=== PATIENT | male | born 1960 | race Two or more races ===

== ENCOUNTER 2016-09-02 20:16 | Inpatient (IN) | payer OTHER ==
[~2016-09-02] VITALS: Ht 170.2 cm; Wt 83.9 kg
[2016-09-02 20:30] VITALS: BP 117/63
[2016-09-02] MEDS ORDERED: UNOBMED (20:43)
[2016-09-02] MEDS ORDERED: CIPROFLOXACIN750 MG ORAL (20:50)
[2016-09-02 21:44] LABS: MEAN CORPUSCULAR HEMOGLOBIN 29.3 PG (27.0-31.0); MEAN CORPUSCULAR HGB CONC 33.9 G/DL (32.0-36.0); MEAN CORPUSCULAR VOLUME 86 FL (80-99); MEAN PLATELET VOLUME 5.4 FL (6.5-10.1); PLATELET COUNT 237 K/UL (150-450); RED CELL DISTRIBUTION WIDTH 11.9 % (11.6-14.8)
[2016-09-02 21:52] VITALS: BP 117/63
[2016-09-02 22:03] LABS: TROPONIN I < 0.30 ng/mL (<=0.30)
[2016-09-02 22:06] LABS: ALANINE AMINOTRANSFERASE 20 U/L (3-41); ALBUMIN/GLOBULIN RATIO 1.3 (1.0-2.7); ANION GAP 16 (5-15); ASPARTATE AMINO TRANSFERASE 26 U/L (5-40); CARBON DIOXIDE 22 mEQ/L (20-30); CHLORIDE 95 mEQ/L (98-107); CREATININE 1.3 mg/dL (0.7-1.2); GLOMERULAR FILTRATION RATE 57.1 mL/min (>60); HEMOLYSIS 3; POTASSIUM 3.7 mEQ/L (3.4-4.9); SODIUM 133 mEQ/L (135-145); TOTAL PROTEIN 7.6 g/dL (6.6-8.7)
[2016-09-02 22:12] LABS: CKMB < 1.5 ng/mL (< 6.7)
[2016-09-02 22:22] LABS: REFLEX LACTIC ACID YES OR NO YES
[2016-09-02 22:35] LABS: WHITE BLOOD COUNT 2.1 K/UL (4.8-10.8)
[2016-09-02 22:47] LABS: APPEARANCE,URINE CLEAR; KETONES,URINE NEGATIVE (NEGATIVE); LEUKOCYTE ESTERASE ,URINE 1+ (NEGATIVE); NITRITE,URINE NEGATIVE (NEGATIVE); PH,URINE 7 (4.5-8.0); PROTEIN,URINE 2+ (NEGATIVE); UROBILINOGEN,URINE NORMAL MG/DL (0.0-1.0)
[2016-09-02 22:55] LABS: BACTERIA,URINE FEW /HPF
[2016-09-02 23:12] LABS: BAND NEUTROPHILS % (MANUAL) 13 % (0-8); BASOPHILS % (MANUAL) 1 % (0-2); EOSINOPHILS % (MANUAL) 6 % (0-3); LYMPHOCYTES % (MANUAL) 30 % (20-45); NEUTROPHILS % (MANUAL) 48 % (45-75); PLATELET ESTIMATE ADEQUATE; PLATELET MORPHOLOGY NORMAL; TOTAL CELLS COUNTED 100
--- NOTE | 2016-09-02 23:27 | Emergency Room Report ---
History of Present Illness General Chief Complaint: Fever Source: Patient (PHYLLIS GAMBINO M.D.) Present Illness HPI 56-year-old male presents to ED for evaluation. Patient states yesterday he had a biopsy done of his prostate. Performed [facility]. starting today he has had tachycardia, diaphoresis and chills. Patient denies any abdominal pain. Denies any nausea or vomiting. Patient states he had blood work which states his prostate was abnormal so they performed a biopsy. Did not have the results yet. Denies chest pain or shortness of breath. No aggravating relieving factors. Denies any other associated symptoms (PHYLLIS GAMBINO M.D.) Allergies: Coded Allergies: No Known Allergies (Unverified , 09/02/16) Patient History Past Medical History: none Past Surgical History: none Pertinent Family History: none Social History: Denies: alcohol use, drug use, smoking Immunizations: UTD Reviewed Nursing Documentation: PMH: Agreed, PSxH: Agreed (PHYLLIS GAMBINO M.D.) Review of Systems All Other Systems: negative except mentioned in HPI (PHYLLIS GAMBINO M.D.) Physical Exam Vital Signs Date Time Temp Pulse Resp B/P Pulse Ox O2 Delivery O2 Flow Rate FiO2 09/02/16 20:30 137 42 117/63 91 Room Air 09/02/16 20:35 2.0 09/02/16 20:38 99.0 Sp02 EP Interpretation: reviewed, normal General Appearance: no apparent distress, alert, GCS 15, non-toxic, other - diaphoretic Head: normocephalic, atraumatic Eyes: bilateral eye PERRL, bilateral eye normal inspection ENT: hearing grossly normal, normal pharynx, no angioedema, normal voice Neck: full range of motion, supple/symm/no masses Respiratory: chest non-tender, lungs clear, normal breath sounds, speaking full sentences Cardiovascular #1: no edema, tachycardia Cardiovascular #2: 2+ carotid (R), 2+ carotid (L), 2+ radial (R), 2+ radial (L) , 2+ dorsalis pedis (R), 2+ dorsalis pedis (L) Gastrointestinal: normal bowel sounds, non tender, soft, non-distended, no guarding, no rebound Rectal: deferred Genitourinary: normal inspection, no CVA tenderness Musculoskeletal: back normal, gait/station normal, normal range of motion, non- tender Neurologic: alert, oriented x3, responsive, motor strength/tone normal, sensory intact, speech normal Psychiatric: judgement/insight normal, memory normal, mood/affect normal, no suicidal/homicidal ideation Reflexes: 3+ bicep (R), 3+ bicep (L), 3+ tricep (R), 3+ tricep (L), 3+ knee (R) , 3+ knee (L) Skin: normal color, no rash, warm/dry, well hydrated Lymphatic: no adenopathy (PHYLLIS GAMBINO M.D.) Medical Decision Making Diagnostic Impression: Primary Impression: History of prostate biopsy Additional Impressions: Leukopenia Qualified Codes: D72.819 - Decreased white blood cell count, unspecified Sepsis Qualified Codes: A41.9 - Sepsis, unspecified organism Prostatitis, acute Lymphoma Qualified Codes: C85.93 - Non-hodgkin lymphoma, unspecified, intra-abdominal lymph nodes Labs Test 09/02/16 21:15 09/02/16 22:30 White Blood Count 2.1 K/UL (4.8-10.8) Red Blood Count 4.70 M/UL (4.70-6.10) Hemoglobin 13.8 G/DL (14.2-18.0) Hematocrit 40.6 % (42.0-52.0) Mean Corpuscular Volume 86 FL (80-99) Mean Corpuscular Hemoglobin 29.3 PG (27.0-31.0) Mean Corpuscular Hemoglobin Concent 33.9 G/DL (32.0-36.0) Red Cell Distribution Width 11.9 % (11.6-14.8) Platelet Count 237 K/UL (150-450) Mean Platelet Volume 5.4 FL (6.5-10.1) Neutrophils (%) (Auto) % (45.0-75.0) Lymphocytes (%) (Auto) % (20.0-45.0) Monocytes (%) (Auto) % (1.0-10.0) Eosinophils (%) (Auto) % (0.0-3.0) Basophils (%) (Auto) % (0.0-2.0) Differential Total Cells Counted 100 Neutrophils % (Manual) 48 % (45-75) Lymphocytes % (Manual) 30 % (20-45) Monocytes % (Manual) 2 % (1-10) Eosinophils % (Manual) 6 % (0-3) Basophils % (Manual) 1 % (0-2) Band Neutrophils 13 % (0-8) Platelet Estimate Adequate Platelet Morphology Normal Red Blood Cell Morphology Normal Sodium Level 133 mEQ/L (135-145) Potassium Level 3.7 mEQ/L (3.4-4.9) Chloride Level 95 mEQ/L (98-107) Carbon Dioxide Level 22 mEQ/L (20-30) Anion Gap 16 (5-15) Blood Urea Nitrogen 10 mg/dL (7-23) Creatinine 1.3 mg/dL (0.7-1.2) Estimat Glomerular Filtration Rate 57.1 mL/min (>60) Glucose Level 138 mg/dL (74-106) Lactic Acid Level 2.80 mmol/L (0.66-2.22) Calcium Level 9.0 mg/dL (8.6-10.2) Total Bilirubin 0.9 mg/dL (0.0-1.2) Aspartate Amino Transf (AST/SGOT) 26 U/L (5-40) Alanine Aminotransferase (ALT/SGPT) 20 U/L (3-41) Alkaline Phosphatase 103 U/L (40-129) Total Creatine Kinase 108 U/L (38-174) Creatine Kinase MB < 1.5 ng/mL (< 6.7) Creatine Kinase MB Relative Index Troponin I < 0.30 ng/mL (<=0.30) Total Protein 7.6 g/dL (6.6-8.7) Albumin 4.3 g/dL (3.5-5.2) Globulin 3.3 g/dL Albumin/Globulin Ratio 1.3 (1.0-2.7) Urine Color Pale yellow Urine Appearance Clear Urine pH 7 (4.5-8.0) Urine Specific [place] 1.005 (1.005-1.035) Urine Protein 2+ (NEGATIVE) Urine Glucose (UA) Negative (NEGATIVE) Urine Ketones Negative (NEGATIVE) Urine Occult Blood 5+ (NEGATIVE) Urine Nitrite Negative (NEGATIVE) Urine Bilirubin Negative (NEGATIVE) Urine Urobilinogen Normal MG/DL (0.0-1.0) Urine Leukocyte Esterase 1+ (NEGATIVE) Urine RBC 5-10 /HPF (0 - 0) Urine WBC 2-4 /HPF (0 - 0) Urine Squamous Epithelial Cells None /LPF (NONE/OCC) Urine Bacteria Few /HPF (NONE) (PHYLLIS GAMBINO M.D.) ER Course Patient signed out to me. He presents with sepsis, fever, hypotension after prostate biopsy. CT scan signout for final disposition. CT scan show extensive adenopathy ascending for malignant process. Also showed large prostate with inflammation. I asked the patient and he said he's been losing a lot of weight in the last couple months. This confirm the suspicion for probable cancer. I discussed the case with Dr. La who will admit. Patient is feeling much better now. We'll admit to the floor. (CARLOS PADGETT M.D.) EKG Diagnostic Results Rate: tachycardiac Rhythm: NSR ST Segments: no acute changes ASA given to the pt in ED: No (PHYLLIS GAMBINO M.D.) Rhythm Strip Diag. Results EP Interpretation: yes Rhythm: NSR, no PVC's, no ectopy (PHYLLIS GAMBINO M.D.) CT/MRI/US Diagnostic Results CT/MRI/US Diagnostic Results : Imaging Test Ordered: CT abdomen and pelvis Impression read by radiologist. Extensive intra-abdominal adenopathy. Large prostate with prostatitis. (CARLOS PADGETT M.D.) Last Vital Signs Date Time Temp Pulse Resp B/P Pulse Ox O2 Delivery O2 Flow Rate FiO2 09/02/16 21:52 113 28 117/63 100 Room Air 09/02/16 20:38 99.0 09/02/16 20:35 2.0 Status: improved (PHYLLIS GAMBINO M.D.) Status: improved (CARLOS PADGETT M.D.) Disposition: ADMITTED INPATIENT Condition: Serious Referrals: NOT CHOSEN IPA/,REFERRING (PCP) PHYLLIS GAMBINO M.D. Sep 02, 2016 23:27 CARLOS PADGETT M.D. Sep 03, 2016 00:45
[2016-09-02] MEDS ORDERED: Piperacillin/Tazobactam 3.375 GM in NS 110 ML IVPB ONE (23:30)
[2016-09-03] VITALS (10 sets, daily range): BP systolic 10–131; BP diastolic 43–70
[2016-09-03] MEDS ORDERED: Zosyn 3.375gm inj ONE (01:26)
--- NOTE | 2016-09-03 08:59 | Diagnostic Imaging Report ---
Indications: Abdominopelvic pain, fever, leukopenia, status post prostate biopsy 09/01/16 Technique: Continuous helical CT imaging of the abdomen and pelvis was performed with automatic exposure control following administration of nonionic IV contrast only, on a Siemens sensation [address] scanner. Axial, coronal, sagittal images were reconstructed at 5 mm slice thickness. No oral contrast was administered per requesting physician's order, despite no contraindications listed in either submitted clinical data or tech note.. CTDI volume(s): 19 mGy Total DLP: 1025 mGy-cm Findings: Comparison: 11/02/10 Multiple enlarged lymph nodes have developed throughout the retrocrural, peripancreatic, para-aortic and bilateral iliac chain regions of the retroperitoneum, largest 5.5 cm long axis by 3.5 cm short axis diameters. Vena cava and bilateral iliac veins are compressed but appear patent. Spleen has increased in size, now 12.5 cm in diameter. It demonstrates apparent 1 cm circumscribed low-attenuation focus in its inferior pole. Scattered arterial mural calcifications are now noted without obvious flow-limiting stenosis or occlusion. Mild stranding is now noted adjacent to the prostate gland. Lack of oral contrast limits evaluation of gastrointestinal tract, nondilated throughout. Appendix unremarkable. Retained barium again noted in several right colonic diverticula. Distal rectum demonstrates apparent mild mural thickening anteriorly with mild surrounding stranding/haziness. No associated extraluminal gas or fluid collections are demonstrated. Bilateral renal collecting systems mildly distended. Urinary bladder distended. No associated stone or mass identified. Liver, gallbladder, pancreas, adrenal glands, kidneys, unopacified ureters and urinary bladder, seminal vesicles, mesentery, remainder visualized abdominopelvic anatomy unremarkable. Small irregular pleural-based linear densities and dependent portions both lung bases. Disc space narrowing with marginal osteophyte formation lower lumbar, lower thoracic spine. Multiple circumscribed sclerotic foci again noted in left ilium.. IMPRESSION: Interval development of bulky retroperitoneal lymphadenopathy suspicious for lymphoma or other lymphoproliferative disorder Increase in splenic size with development of focal lesion likely reflects same process as above Apparent mild thickening of the anterior rectal wall with perirectal and periprosthetic stranding likely within normal limits for recent transrectal prostate biopsy. Inflammatory or neoplastic process not excludable. No evidence of perforation or abscess. Urinary bladder distention may reflect outlet obstruction. Mild bilateral renal collecting system fullness may be secondary to this as well. Correlate clinically. No other evidence of acute abdominopelvic disease, with limitation as described. Subtle but potentially significant abnormalities the gastrointestinal tract may be missed. Repeat CT scan with full oral and IV contrast preparation recommended for more complete evaluation, as clinically indicated Right colonic diverticulosis Pulmonary bibasal subsegmental atelectasis Degenerative spondylosis Stable sclerotic foci left ilium most likely bone islands. Correlate with serum PSA level. This correlates with [facility] preliminary report.
--- NOTE | 2016-09-03 09:26 | Diagnostic Imaging Report ---
Indication: Chest pain Technique: Single portable AP view of the chest. Findings: Comparison: 05/29/2010 The bones and extra pulmonary soft tissues, cardiomediastinal silhouette, pulmonary vasculature and parenchyma, and pleural surfaces remain unremarkable. IMPRESSION: Negative portable AP chest, unchanged.
[2016-09-03] MEDS ORDERED: Cefepime HCl 2 GM in D5W 110 ML IVPB SCH (11:00)
--- NOTE | 2016-09-03 11:09 | History & Physical ---
History and Physical History & Physicial Pt seen and examined, full H+P to follow 56 y/o man s/p prostate biopsy yesterday, developed high fevers and tachycardia , likely with prostatitis, f/u blood cx, broad spectrum IV abx and aggressive IVF resuscitation started, Urology and ID consults called and will see today JAYME CHRISTY Sep 03, 2016 11:09
[2016-09-03] MEDS ORDERED: Piperacillin/Tazobactam 3.375 GM in D5W 110 ML IVPB SCH (14:00)
[2016-09-03 14:01] LABS: OTHERS PATHOLOGIST COMMENT
--- NOTE | 2016-09-03 14:06 | Infectious Diseases Prog Note ---
Assessment/Plan Assessment/Plan Full consult dictated: A) 1) gram neg bacteremia, sepsis, leukopenia, ? prostatitis, s/p prostate biopsy, ? uti, ? gi source 2) ct noted - bulky retroperitoneal lymphadenopathy, suspicious for lymphoma or lymphoproliferative disease 3) allergies - negative P) 1) meropenem to cover ESBL until id/sensitivities back 2) continue treatment and w/u per Dr. Zavala 3) thank you Subjective Allergies: Coded Allergies: No Known Allergies (Unverified , 09/02/16) Objective Vital Signs Last 24 Hour Vital Signs Date Time Temp Pulse Resp B/P Pulse Ox O2 Delivery O2 Flow Rate FiO2 09/03/16 11:08 98.2 98 18 107/62 96 Room Air 09/03/16 08:49 102.6 110 20 102/59 98 Room Air 09/03/16 08:49 102.6 09/03/16 08:13 103.3 122 23 122/60 97 Room Air 09/03/16 04:00 97.9 92 20 104/43 97 Room Air 09/03/16 02:30 101 20 95/55 97 Nasal Cannula 2.0 09/03/16 02:30 99.0 101 20 100/65 99 Nasal Cannula 2.0 09/03/16 02:00 99.1 103 20 96/58 99 Nasal Cannula 2.0 09/03/16 00:00 101 20 100/65 99 Nasal Cannula 2.0 09/02/16 21:52 113 28 117/63 100 Room Air 09/02/16 20:38 99.0 151 22 104/64 98 Room Air 09/02/16 20:35 28 100 2.0 09/02/16 20:30 137 42 117/63 91 Room Air Height (Feet): 5 Height (Inches): 7.00 Weight (Pounds): 185 Microbiology Date/Time Source Procedure Growth Status 09/02/16 21:15 Blood Blood Culture - Preliminary Resulted 09/02/16 21:00 Blood Blood Culture - Preliminary Resulted Laboratory Tests Test 09/02/16 21:15 09/02/16 22:30 09/03/16 02:05 White Blood Count 2.1 K/UL (4.8-10.8) *L Red Blood Count 4.70 M/UL (4.70-6.10) Hemoglobin 13.8 G/DL (14.2-18.0) L Hematocrit 40.6 % (42.0-52.0) L Mean Corpuscular Volume 86 FL (80-99) Mean Corpuscular Hemoglobin 29.3 PG (27.0-31.0) Mean Corpuscular Hemoglobin Concent 33.9 G/DL (32.0-36.0) Red Cell Distribution Width 11.9 % (11.6-14.8) Platelet Count 237 K/UL (150-450) Mean Platelet Volume 5.4 FL (6.5-10.1) L Neutrophils (%) (Auto) % (45.0-75.0) Lymphocytes (%) (Auto) % (20.0-45.0) Monocytes (%) (Auto) % (1.0-10.0) Eosinophils (%) (Auto) % (0.0-3.0) Basophils (%) (Auto) % (0.0-2.0) Differential Total Cells Counted 100 Neutrophils % (Manual) 48 % (45-75) Lymphocytes % (Manual) 30 % (20-45) Monocytes % (Manual) 2 % (1-10) Eosinophils % (Manual) 6 % (0-3) H Basophils % (Manual) 1 % (0-2) Band Neutrophils 13 % (0-8) H Platelet Estimate Adequate Platelet Morphology Normal Red Blood Cell Morphology Normal Sodium Level 133 mEQ/L (135-145) L Potassium Level 3.7 mEQ/L (3.4-4.9) Chloride Level 95 mEQ/L (98-107) L Carbon Dioxide Level 22 mEQ/L (20-30) Anion Gap 16 (5-15) H Blood Urea Nitrogen 10 mg/dL (7-23) Creatinine 1.3 mg/dL (0.7-1.2) H Estimat Glomerular Filtration Rate 57.1 mL/min (>60) Glucose Level 138 mg/dL (74-106) H Lactic Acid Level 2.80 mmol/L (0.66-2.22) H 0.20 mmol/L (0.66-2.22) L Calcium Level 9.0 mg/dL (8.6-10.2) Total Bilirubin 0.9 mg/dL (0.0-1.2) Aspartate Amino Transf (AST/SGOT) 26 U/L (5-40) Alanine Aminotransferase (ALT/SGPT) 20 U/L (3-41) Alkaline Phosphatase 103 U/L (40-129) Total Creatine Kinase 108 U/L (38-174) Creatine Kinase MB < 1.5 ng/mL (< 6.7) Creatine Kinase MB Relative Index Troponin I < 0.30 ng/mL (<=0.30) Total Protein 7.6 g/dL (6.6-8.7) Albumin 4.3 g/dL (3.5-5.2) Globulin 3.3 g/dL Albumin/Globulin Ratio 1.3 (1.0-2.7) Urine Color Pale yellow Urine Appearance Clear Urine pH 7 (4.5-8.0) Urine Specific [place] 1.005 (1.005-1.035) Urine Protein 2+ (NEGATIVE) H Urine Glucose (UA) Negative (NEGATIVE) Urine Ketones Negative (NEGATIVE) Urine Occult Blood 5+ (NEGATIVE) H Urine Nitrite Negative (NEGATIVE) Urine Bilirubin Negative (NEGATIVE) Urine Urobilinogen Normal MG/DL (0.0-1.0) Urine Leukocyte Esterase 1+ (NEGATIVE) H Urine RBC 5-10 /HPF (0 - 0) H Urine WBC 2-4 /HPF (0 - 0) Urine Squamous Epithelial Cells None /LPF (NONE/OCC) Urine Bacteria Few /HPF (NONE) Current Medications Medications (Trade) Dose Ordered Sig/Alec Route PRN Reason Start Time Stop Time Status Last Admin Dose Admin Acetaminophen 650 mg 650 mg Q4H PRN ORAL Mild Pain/Temp > 100.5 09/03/16 05:00 10/03/16 04:59 09/03/16 07:50 Ondansetron HCl (Zofran) 4 mg Q6H PRN IVP Nausea & Vomiting 09/03/16 06:00 10/03/16 05:59 Piperacillin Sod/ Tazobactam Sod/ Dextrose (Zosyn/D5W) 110 ml @ 27.5 mls/hr Q8HR IVPB 09/03/16 14:00 09/10/16 13:59 Sodium Chloride 1,000 ml @ 150 mls/hr Q6H40M IV 09/03/16 10:00 10/03/16 09:59 09/03/16 10:49 JUSTYN GRANGER Sep 03, 2016 14:06
--- NOTE | 2016-09-03 20:07 | History and Physical ---
Vickie Mohan N.P. 09/03/162006: History of Present Illness General Date patient seen: Sep 03, 2016 Time patient seen: 19:57 Reason for Hospitalization: Fever Present Illness HPI 56-year-old male with a PMH of enlarged prostate who presented to the ED last night for fevers/chills s/p prostate bx. Patient states that he had a prostate biopsy given his enlarged prostate earlier yesterday. He was discharged home and started having fevers and chills. In ED he was seen to have tachycardia, Tmax 102.6. CT a/p showed retroperitoneal LAD. Patient denies any abdominal pain. Denies any nausea or vomiting. Does not have the results for the biopsy performed at [facility] yet. Denies chest pain or shortness of breath. Patient was started on IV meropenam for possible ESBL and given aggressive fluid resuscitation. Allergies: Coded Allergies: No Known Allergies (Unverified , 09/02/16) Medication History Scheduled Ciprofloxacin Hcl (Ciprofloxacin Hcl*), 500 MG ORAL BID, (Reported) Miscellaneous Medications Unable to Obtain Medications (Unable To Obtain Meds), (Reported) Patient History History Provided By: Patient Healthcare decision maker Resuscitation status Full Code Advanced Directive on File Review of Systems Constitutional: Reports: chills, fever Physical Exam General Appearance: mild distress, other - shivering HEENT: normocephalic, atraumatic, PERRL Neck: non-tender, supple, normal inspection Respiratory/Chest: chest wall non-tender, lungs clear, normal breath sounds, no respiratory distress Cardiovascular/Chest: normal peripheral pulses, regular rhythm, tachycardia Abdomen: normal bowel sounds, non tender, soft, no mass Extremities: normal range of motion, non-tender, non-pitting, no edema Skin Exam: normal pigmentation, other - diaphoretic 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: 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 coach 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 grossly normal, no motor/sensory deficits, alert, oriented x 3, responsive, normal mood/affect Last 24 Hour Vital Signs Date Time Temp Pulse Resp B/P Pulse Ox O2 Delivery O2 Flow Rate FiO2 09/03/16 17:21 100.4 104 25 107/55 96 Room Air 09/03/16 17:21 100.4 09/03/16 15:55 102.4 113 18 131/70 97 Room Air 09/03/16 11:08 98.2 98 18 107/62 96 Room Air 09/03/16 08:49 102.6 110 20 102/59 98 Room Air 09/03/16 08:13 103.3 122 23 122/60 97 Room Air 09/03/16 04:00 97.9 92 20 104/43 97 Room Air 09/03/16 02:30 101 20 95/55 97 Nasal Cannula 2.0 09/03/16 02:30 99.0 101 20 100/65 99 Nasal Cannula 2.0 09/03/16 02:00 99.1 103 20 96/58 99 Nasal Cannula 2.0 09/03/16 00:00 101 20 100/65 99 Nasal Cannula 2.0 09/02/16 21:52 113 28 117/63 100 Room Air 09/02/16 20:38 99.0 151 22 104/64 98 Room Air 09/02/16 20:35 28 100 2.0 09/02/16 20:30 137 42 117/63 91 Room Air Intake and Output 09/02/16 09/03/16 19:00 07:00 Intake Total 300 ml Output Total 600 ml Balance -300 ml Intake Oral 300 ml Output Urine Total 600 ml # Voids 2 # Bowel Movements 1 Laboratory Tests Test 09/02/16 21:15 09/02/16 22:30 09/03/16 02:05 White Blood Count 2.1 K/UL (4.8-10.8) *L Red Blood Count 4.70 M/UL (4.70-6.10) Hemoglobin 13.8 G/DL (14.2-18.0) L Hematocrit 40.6 % (42.0-52.0) L Mean Corpuscular Volume 86 FL (80-99) Mean Corpuscular Hemoglobin 29.3 PG (27.0-31.0) Mean Corpuscular Hemoglobin Concent 33.9 G/DL (32.0-36.0) Red Cell Distribution Width 11.9 % (11.6-14.8) Platelet Count 237 K/UL (150-450) Mean Platelet Volume 5.4 FL (6.5-10.1) L Neutrophils (%) (Auto) % (45.0-75.0) Lymphocytes (%) (Auto) % (20.0-45.0) Monocytes (%) (Auto) % (1.0-10.0) Eosinophils (%) (Auto) % (0.0-3.0) Basophils (%) (Auto) % (0.0-2.0) Differential Total Cells Counted 100 Neutrophils % (Manual) 48 % (45-75) Lymphocytes % (Manual) 30 % (20-45) Monocytes % (Manual) 2 % (1-10) Eosinophils % (Manual) 6 % (0-3) H Basophils % (Manual) 1 % (0-2) Band Neutrophils 13 % (0-8) H Other Cell Type Pathologist comment Platelet Estimate Adequate Platelet Morphology Normal Red Blood Cell Morphology Normal Sodium Level 133 mEQ/L (135-145) L Potassium Level 3.7 mEQ/L (3.4-4.9) Chloride Level 95 mEQ/L (98-107) L Carbon Dioxide Level 22 mEQ/L (20-30) Anion Gap 16 (5-15) H Blood Urea Nitrogen 10 mg/dL (7-23) Creatinine 1.3 mg/dL (0.7-1.2) H Estimat Glomerular Filtration Rate 57.1 mL/min (>60) Glucose Level 138 mg/dL (74-106) H Lactic Acid Level 2.80 mmol/L (0.66-2.22) H 0.20 mmol/L (0.66-2.22) L Calcium Level 9.0 mg/dL (8.6-10.2) Total Bilirubin 0.9 mg/dL (0.0-1.2) Aspartate Amino Transf (AST/SGOT) 26 U/L (5-40) Alanine Aminotransferase (ALT/SGPT) 20 U/L (3-41) Alkaline Phosphatase 103 U/L (40-129) Total Creatine Kinase 108 U/L (38-174) Creatine Kinase MB < 1.5 ng/mL (< 6.7) Creatine Kinase MB Relative Index Troponin I < 0.30 ng/mL (<=0.30) Total Protein 7.6 g/dL (6.6-8.7) Albumin 4.3 g/dL (3.5-5.2) Globulin 3.3 g/dL Albumin/Globulin Ratio 1.3 (1.0-2.7) Urine Color Pale yellow Urine Appearance Clear Urine pH 7 (4.5-8.0) Urine Specific [place] 1.005 (1.005-1.035) Urine Protein 2+ (NEGATIVE) H Urine Glucose (UA) Negative (NEGATIVE) Urine Ketones Negative (NEGATIVE) Urine Occult Blood 5+ (NEGATIVE) H Urine Nitrite Negative (NEGATIVE) Urine Bilirubin Negative (NEGATIVE) Urine Urobilinogen Normal MG/DL (0.0-1.0) Urine Leukocyte Esterase 1+ (NEGATIVE) H Urine RBC 5-10 /HPF (0 - 0) H Urine WBC 2-4 /HPF (0 - 0) Urine Squamous Epithelial Cells None /LPF (NONE/OCC) Urine Bacteria Few /HPF (NONE) Microbiology Date/Time Source Procedure Growth Status 09/02/16 21:15 Blood Blood Culture - Preliminary Resulted 09/02/16 21:00 Blood Blood Culture - Preliminary Resulted Height (Feet): 5 Height (Inches): 7.00 Weight (Pounds): 185 Medications Current Medications Medications (Trade) Dose Ordered Sig/Alec Route PRN Reason Start Time Stop Time Status Last Admin Dose Admin Acetaminophen 650 mg 650 mg Q4H PRN ORAL Mild Pain/Temp > 100.5 09/03/16 05:00 10/03/16 04:59 09/03/16 16:22 Meropenem/Sodium Chloride (Merrem/Sodium Chloride) 100 ml @ 200 mls/hr Q8HR IVPB 09/03/16 15:30 09/08/16 15:29 09/03/16 15:05 Ondansetron HCl (Zofran) 4 mg Q6H PRN IVP Nausea & Vomiting 09/03/16 06:00 10/03/16 05:59 Sodium Chloride 1,000 ml @ 150 mls/hr Q6H40M IV 09/03/16 10:00 10/03/16 09:59 09/03/16 16:21 Assessment/Plan Status: unchanged, fever Status Narrative 56 y/o male with a PMH of enlarged prostate who had a prostate biopsy and subsequently presented with fevers/chills, currently being treated for sepsis likely 2/2 prostatitis. Assessment/Plan #Sepsis likely 2/2 prostatitis s/p prostate bx - Admit to tele/med-surg - aggressive IVF resuscitation - IV meropenam for possible ESBL - CT a/p showing retroperitoneal LAD - f/u blood cx - f/u urine cx - urology consulted - ID consulted, Dr. Milton - pain control and supportive care #MAXWELL - Cr 1.3 - IVF - ctm renal function JAYME CHRISTY 09/04/16 1424: History of Present Illness General Reason for Hospitalization: Fever Present Illness Allergies: Coded Allergies: No Known Allergies (Unverified , 09/02/16) Medication History Scheduled Ciprofloxacin Hcl (Ciprofloxacin Hcl*), 500 MG ORAL BID, (Reported) Miscellaneous Medications Unable to Obtain Medications (Unable To Obtain Meds), (Reported) Assessment/Plan Assessment/Plan I saw and examined the patient, reviewed the case in detail, reviewed radiology and EKG if applicable, in addition reviewing the laboratory data and microbiology. I agree with the history, physical examination findings, assessment and plan of care as outlined above by the Nurse Practitioner with any additions or modifications noted. Vickie Mohan N.P. Sep 03, 2016 20:07 JAYME CHRISTY Sep 04, 2016 14:24
[2016-09-03 21:27] LABS: PSA TOTAL 41.6 ng/mL (< 3.5)
[2016-09-03 21:39] LABS: URIC ACID 3.9 mg/dL (3.0-7.5)
[2016-09-04] VITALS: BP 115/62
[2016-09-04 03:45] VITALS: BP 91/61
[2016-09-04 06:30] LABS: MEAN CORPUSCULAR HEMOGLOBIN 29.4 PG (27.0-31.0); MEAN CORPUSCULAR HGB CONC 33.6 G/DL (32.0-36.0); MEAN CORPUSCULAR VOLUME 87 FL (80-99); MEAN PLATELET VOLUME 5.9 FL (6.5-10.1); PLATELET COUNT 157 K/UL (150-450); RED BLOOD COUNT 4.23 M/UL (4.70-6.10); RED CELL DISTRIBUTION WIDTH 12.3 % (11.6-14.8)
[2016-09-04 06:45] LABS: ALANINE AMINOTRANSFERASE 38 U/L (3-41); ALBUMIN/GLOBULIN RATIO 0.9 (1.0-2.7); ANION GAP 16 (5-15); ASPARTATE AMINO TRANSFERASE 62 U/L (5-40); CARBON DIOXIDE 21 mEQ/L (20-30); CHLORIDE 103 mEQ/L (98-107); CREATININE 0.9 mg/dL (0.7-1.2); GLOMERULAR FILTRATION RATE > 60 mL/min (>60); HEMOLYSIS 0; POTASSIUM 3.3 mEQ/L (3.4-4.9); SODIUM 140 mEQ/L (135-145); TOTAL PROTEIN 5.9 g/dL (6.6-8.7)
[2016-09-04 06:59] LABS: BILIRUBIN,DIRECT 0.5 mg/dL (0.1-0.3)
--- NOTE | 2016-09-04 07:38 | Urology Progress Note ---
Assessment/Plan Assessment/Plan post prostate bx sepsis BPH hx elevated PSA hx hematuria proteinuria abx as ordered f/u on cx's monitor clinically Subjective Allergies: Coded Allergies: No Known Allergies (Unverified , 09/02/16) Subjective overall feels better, voiding Objective Last 24 Hour Vital Signs Date Time Temp Pulse Resp B/P Pulse Ox O2 Delivery O2 Flow Rate FiO2 09/04/16 03:45 97.9 87 18 91/61 97 Room Air 09/04/16 01:00 98.9 09/04/16 00:00 101.8 105 18 115/62 96 Room Air 09/03/16 20:00 99.3 99 18 111/66 97 Room Air 09/03/16 17:21 100.4 104 25 107/55 96 Room Air 09/03/16 15:55 102.4 113 18 131/70 97 Room Air 09/03/16 11:08 98.2 98 18 107/62 96 Room Air 09/03/16 08:49 102.6 110 20 102/59 98 Room Air 09/03/16 08:13 103.3 122 23 122/60 97 Room Air Intake and Output 09/03/16 09/04/16 19:00 07:00 Intake Total 600 ml 1500 ml Balance 600 ml 1500 ml IV Total 600 ml 1500 ml # Voids 3 # Bowel Movements 1 1 Microbiology Date/Time Source Procedure Growth Status 09/02/16 21:15 Blood Blood Culture - Preliminary Gram Negative Bacillus 1 Resulted 09/03/16 17:30 Urine,Clean Catch Urine Culture - Preliminary NO GROWTH Resulted Current Medications Medications (Trade) Dose Ordered Sig/Alec Route PRN Reason Start Time Stop Time Status Last Admin Dose Admin Acetaminophen 650 mg 650 mg Q4H PRN ORAL Mild Pain/Temp > 100.5 09/03/16 05:00 10/03/16 04:59 09/04/16 00:09 Meropenem/Sodium Chloride (Merrem/Sodium Chloride) 100 ml @ 200 mls/hr Q8HR IVPB 09/03/16 15:30 09/08/16 15:29 09/04/16 05:53 Ondansetron HCl (Zofran) 4 mg Q6H PRN IVP Nausea & Vomiting 09/03/16 06:00 10/03/16 05:59 Sodium Chloride 1,000 ml @ 150 mls/hr Q6H40M IV 09/03/16 10:00 10/03/16 09:59 09/04/16 03:11 Laboratory Tests 09/03/16 20:15: Reticulocyte Count 0.5, Uric Acid 3.9, Lactate Dehydrogenase 452H, Carcinoembryonic Antigen 1.8, CA 15-3 Antigen [Pending], CA 19-9 Antigen 24.58, Prostate Specific Antigen 41.6H 09/04/16 05:20: White Blood Count 4.0#L, Red Blood Count 4.23L, Hemoglobin 12.4L, Hematocrit 36.9L, Mean Corpuscular Volume 87, Mean Corpuscular Hemoglobin 29.4, Mean Corpuscular Hemoglobin Concent 33.6, Red Cell Distribution Width 12.3, Platelet Count 157, Mean Platelet Volume 5.9L, Neutrophils (%) (Auto) , Lymphocytes (%) ( Auto) , Monocytes (%) (Auto) , Eosinophils (%) (Auto) , Basophils (%) (Auto) , Sodium Level 140, Potassium Level 3.3L, Chloride Level 103, Carbon Dioxide Level 21, Anion Gap 16H, Blood Urea Nitrogen 9, Creatinine 0.9, Estimat Glomerular Filtration Rate > 60, Glucose Level 93, Calcium Level 8.0L, Total Bilirubin 1.1, Direct Bilirubin 0.5H, Aspartate Amino Transf (AST/SGOT) 62H, Alanine Aminotransferase (ALT/SGPT) 38, Alkaline Phosphatase 120, Total Protein 5.9L, Albumin 2.9L, Globulin 3.0, Albumin/Globulin Ratio 0.9L Height (Feet): 5 Height (Inches): 7.00 Weight (Pounds): 185 Objective exam stable FLORIN PRAJAPATI Sep 04, 2016 07:38
[2016-09-04 08:00] VITALS: BP 107/69
--- NOTE | 2016-09-04 08:30 | Consultation ---
DATE OF CONSULTATION: 09/03/2016 CONSULTING PHYSICIAN: Chele Castañeda M.D. REFERRING PHYSICIAN: Lyn Zavala M.D. REASON FOR CONSULTATION: For evaluation of post biopsy sepsis. HISTORY OF PRESENT ILLNESS: This is a 56-year-old male. He has a history of a PSA. He had a prostate biopsy two days ago by . He developed fevers and chills post biopsy and came to the emergency room. He was treated with antibiotics prior to the biopsy. PAST MEDICAL HISTORY: As above. MEDICATIONS: Current medications in the hospital were reviewed. He is on antibiotics as ordered. Apparently, he did take Cipro prior to the biopsy. ALLERGIES: No known drug allergies. SOCIAL HISTORY: He is a nonsmoker. FAMILY HISTORY: Noncontributory. REVIEW OF SYSTEMS: As above, PHYSICAL EXAMINATION: GENERAL: Well-developed and well-nourished male, in no acute distress. VITAL SIGNS: His T-max was 103.3 and blood pressure is 102/59. ABDOMEN: Soft. No CVA tenderness. EXTREMITIES: No clubbing or cyanosis. LABORATORY DATA: His admit UA showed 5 to 10 RBCs and 2+ protein. White count 2.1, hemoglobin 13.8. BUN is 10 and creatinine 1.3. He had CT scan of the abdomen and pelvis, there was evidence of bulky retroperitoneal adenopathy, some renal collecting system fullness. IMPRESSION: 1. Post prostate biopsy, sepsis. 2. Elevated prostate-specific antigen history. 3. Benign prostatic hypertrophy history. 4. Hematuria. 5. Proteinuria. PLAN AND DISCUSSION: The patient is to be treated with broad-spectrum antibiotics as ordered per ID. I would also recommend hydration and clinical monitoring. Thank you, Dr. Zavala, for asking me to participate in this consultation. Chele Castañeda M.D. DR: MICHAELLE JOB#: [id number] CC:
[2016-09-04 12:00] VITALS: BP 125/73
--- NOTE | 2016-09-04 13:30 | Diagnostic Imaging Report ---
Indication: Abdominal distention, abnormal renal function tests, abnormal recent CT scan Technique: Marie-scale and duplex images of the upper abdomen were obtained Comparison: Reference made to CT scan of 09/02/2012 Findings: Gallbladder demonstrates no evidence of stones. However, gallbladder wall is thickened, measures 5 mm thick. It is slightly hypervascular as well. Sonographic Eagle's sign is negative. Common bile duct measures 6 mm in diameter. No intrahepatic biliary ductal dilatation. Liver demonstrates normal echogenicity, no focal abnormality. Liver is slightly enlarged. Portal vein and hepatic veins are patent. Pancreas demonstrates slightly heterogeneous echogenicity. Enlarged peripancreatic nodes are noted, measuring up to 3.7 cm long axis dimension. The spleen is enlarged, measuring 14 cm long axis dimension. There an 18 mm hypoechoic lesion in the splenic hilum. Left kidney measures 12.3 cm in length. Right kidney measures 13.1 cm length. Both kidneys demonstrate normal echogenicity. Both kidneys are borderline hydronephrotic, more so on the right on the left. No focal abnormality . The urinary bladder is mildly distended.. Non-aneurysmal abdominal aorta . Numerous enlarged para-aortic lymph nodes demonstrated Impression: No evidence of gallstones. However, there is gallbladder wall thickening, not evident on previous days CT scan. Significance of this is uncertain, may indicate noninflammatory edema, but acute acalculous cholecystitis cannot be completely ruled out. Consider nuclear medicine hepatobiliary scan if there is high clinical suspicion. Negative for dilated ducts Extensive peripancreatic and para-aortic lymphadenopathy, also described on recent abdomen pelvis CT Splenomegaly, also previously described. 18 mm hypoechoic splenic lesion, also described on recent CT Borderline bilateral renal hydronephrosis, right greater than left Borderline hepatomegaly
[2016-09-04 15:16] LABS: INR 1.1 (0.9-1.1)
--- NOTE | 2016-09-04 15:57 | General Progress Note ---
Assessment/Plan Problem List: (1) Sepsis Assessment & Plan: Cont IV abx per ID Has gram neg mal bacteremia IV fluids Supp care ICD Codes: A41.9 - Sepsis, unspecified organism SNOMED: 29619240, [id number], [id number] Qualifiers: Qualified Codes: A41.9 - Sepsis, unspecified organism (2) Prostatitis, acute Assessment & Plan: Apprec urology eval No surgical intervention needed PSA noted Cont IV abx per ID f/u blood cx ICD Codes: N41.0 - Acute prostatitis SNOMED: 34046531, [id number] (3) Lymphadenopathy, abdominal Assessment & Plan: Seen on CT scan, concerning for possible lymphoma or other proliferative disorder Apprec [facility] eval, will pursue workup while remains inpatient for treatment of sepsis ICD Codes: R59.0 - Localized enlarged lymph nodes SNOMED: 719107022 Subjective Date patient seen: Sep 04, 2016 Time patient seen: 15:54 ROS Limited/Unobtainable: No Allergies: Coded Allergies: No Known Allergies (Unverified , 09/02/16) Subjective Seen by [facility], no further tachycardia, no fevers/chills, blood cx growing gram neg rods, feels better overall Objective Last 24 Hour Vital Signs Date Time Temp Pulse Resp B/P Pulse Ox O2 Delivery O2 Flow Rate FiO2 09/04/16 12:00 97.3 78 20 125/73 100 Room Air 09/04/16 08:00 97.7 89 20 107/69 97 Room Air 09/04/16 03:45 97.9 87 18 91/61 97 Room Air 09/04/16 01:00 98.9 09/04/16 00:00 101.8 105 18 115/62 96 Room Air 09/03/16 20:00 99.3 99 18 111/66 97 Room Air 09/03/16 17:21 100.4 104 25 107/55 96 Room Air 09/03/16 15:55 102.4 113 18 131/70 97 Room Air Intake and Output 09/03/16 09/04/16 19:00 07:00 Intake Total 600 ml 1500 ml Balance 600 ml 1500 ml IV Total 600 ml 1500 ml # Voids 3 # Bowel Movements 1 1 Laboratory Tests 09/03/16 20:15: Reticulocyte Count 0.5, Uric Acid 3.9, Lactate Dehydrogenase 452H, Carcinoembryonic Antigen 1.8, CA 15-3 Antigen [Pending], CA 19-9 Antigen 24.58, Prostate Specific Antigen 41.6H 09/04/16 05:20: White Blood Count 4.0#L, Red Blood Count 4.23L, Hemoglobin 12.4L, Hematocrit 36.9L, Mean Corpuscular Volume 87, Mean Corpuscular Hemoglobin 29.4, Mean Corpuscular Hemoglobin Concent 33.6, Red Cell Distribution Width 12.3, Platelet Count 157, Mean Platelet Volume 5.9L, Neutrophils (%) (Auto) , Lymphocytes (%) ( Auto) , Monocytes (%) (Auto) , Eosinophils (%) (Auto) , Basophils (%) (Auto) , Sodium Level 140, Potassium Level 3.3L, Chloride Level 103, Carbon Dioxide Level 21, Anion Gap 16H, Blood Urea Nitrogen 9, Creatinine 0.9, Estimat Glomerular Filtration Rate > 60, Glucose Level 93, Calcium Level 8.0L, Total Bilirubin 1.1, Direct Bilirubin 0.5H, Aspartate Amino Transf (AST/SGOT) 62H, Alanine Aminotransferase (ALT/SGPT) 38, Alkaline Phosphatase 120, Total Protein 5.9L, Albumin 2.9L, Globulin 3.0, Albumin/Globulin Ratio 0.9L 09/04/16 14:35: Prothrombin Time 12.0H, Prothromb Time International Ratio 1.1, Activated Partial Thromboplast Time 36H Height (Feet): 5 Height (Inches): 7.00 Weight (Pounds): 185 Objective General: alert, cooperative, no distress, appears stated age Head: normocephalic, without obvious abnormality, atraumatic Eyes: conjunctivae/corneas clear. PERRL, EOM's intact Throat: lips, mucosa, and tongue normal. MMM Neck: supple, symmetrical, trachea midline, and no JVD Lungs: clear to auscultation bilaterally Heart: regular rate and rhythm, S1, S2 normal, no murmur, click, rub or gallop Abdomen: soft, non-tender, non-distended, bowel sounds normal; no masses or organomegaly Extremities: extremities normal, atraumatic, no cyanosis or edema Pulses: 2+ and symmetric Skin: skin color, texture, turgor normal; no rashes or lesions Neurologic: grossly normal, no focal deficits JAYME CHRISTY Sep 04, 2016 15:57
[2016-09-04 16:00] VITALS: BP 136/94
--- NOTE | 2016-09-04 16:18 | Infectious Diseases Prog Note ---
Assessment/Plan Assessment/Plan A) 1) gram neg bacteremia, sepsis, leukopenia, ? prostatitis, s/p prostate biopsy, ? uti, ? gi source 2) ct noted - bulky retroperitoneal lymphadenopathy, suspicious for lymphoma or lymphoproliferative disease 3) allergies - negative P) 1) meropenem for now 2) continue treatment and w/u per Dr. Zavala 3) check final cultures Subjective Constitutional: Reports: fever HEENT: Denies: congestion Respiratory: Denies: shortness of breath Cardiovascular: Denies: chest pain Gastrointestinal/Abdominal: Denies: diarrhea, nausea, vomiting Allergies: Coded Allergies: No Known Allergies (Unverified , 09/02/16) Objective Vital Signs Last 24 Hour Vital Signs Date Time Temp Pulse Resp B/P Pulse Ox O2 Delivery O2 Flow Rate FiO2 09/04/16 12:00 97.3 78 20 125/73 100 Room Air 09/04/16 08:00 97.7 89 20 107/69 97 Room Air 09/04/16 03:45 97.9 87 18 91/61 97 Room Air 09/04/16 01:00 98.9 09/04/16 00:00 101.8 105 18 115/62 96 Room Air 09/03/16 20:00 99.3 99 18 111/66 97 Room Air 09/03/16 17:21 100.4 104 25 107/55 96 Room Air Height (Feet): 5 Height (Inches): 7.00 Weight (Pounds): 185 General Appearance: no acute distress HEENT: normocephalic, atraumatic, anicteric, mucous membranes moist, PERRL, EOMI, pharynx normal, supple, no JVD Respiratory/Chest: lungs clear, normal breath sounds, no respiratory distress, no accessory muscle use Cardiovascular: normal rate, regular rhythm, no gallop/murmur, no JVD Abdomen: normal bowel sounds, soft, non tender, no organomegaly, non distended Genitourinary: other - no suh Extremities: no cyanosis Skin: no rash Neurologic/Psychiatric: radon inspector II-XII grossly normal, alert, oriented x 3, responsive Lymphatic: no neck adenopathy Musculoskeletal: no effusion Microbiology Date/Time Source Procedure Growth Status 09/02/16 21:15 Blood Blood Culture - Preliminary Gram Negative Bacillus 1 Resulted 09/02/16 21:00 Blood Blood Culture - Preliminary Gram Negative Bacillus 1 Resulted 09/03/16 17:30 Urine,Clean Catch Urine Culture - Preliminary NO GROWTH Resulted Laboratory Tests Test 09/03/16 20:15 09/04/16 05:20 09/04/16 14:35 Reticulocyte Count 0.5 % (0.0-2.0) Uric Acid 3.9 mg/dL (3.0-7.5) Lactate Dehydrogenase 452 U/L (135-230) H Carcinoembryonic Antigen 1.8 ng/mL CA 15-3 Antigen Pending CA 19-9 Antigen 24.58 U/mL (< 37) Prostate Specific Antigen 41.6 ng/mL (< 3.5) H White Blood Count 4.0 K/UL (4.8-10.8) #L Red Blood Count 4.23 M/UL (4.70-6.10) L Hemoglobin 12.4 G/DL (14.2-18.0) L Hematocrit 36.9 % (42.0-52.0) L Mean Corpuscular Volume 87 FL (80-99) Mean Corpuscular Hemoglobin 29.4 PG (27.0-31.0) Mean Corpuscular Hemoglobin Concent 33.6 G/DL (32.0-36.0) Red Cell Distribution Width 12.3 % (11.6-14.8) Platelet Count 157 K/UL (150-450) Mean Platelet Volume 5.9 FL (6.5-10.1) L Neutrophils (%) (Auto) % (45.0-75.0) Lymphocytes (%) (Auto) % (20.0-45.0) Monocytes (%) (Auto) % (1.0-10.0) Eosinophils (%) (Auto) % (0.0-3.0) Basophils (%) (Auto) % (0.0-2.0) Sodium Level 140 mEQ/L (135-145) Potassium Level 3.3 mEQ/L (3.4-4.9) L Chloride Level 103 mEQ/L (98-107) Carbon Dioxide Level 21 mEQ/L (20-30) Anion Gap 16 (5-15) H Blood Urea Nitrogen 9 mg/dL (7-23) Creatinine 0.9 mg/dL (0.7-1.2) Estimat Glomerular Filtration Rate > 60 mL/min (>60) Glucose Level 93 mg/dL (74-106) Calcium Level 8.0 mg/dL (8.6-10.2) L Total Bilirubin 1.1 mg/dL (0.0-1.2) Direct Bilirubin 0.5 mg/dL (0.1-0.3) H Aspartate Amino Transf (AST/SGOT) 62 U/L (5-40) H Alanine Aminotransferase (ALT/SGPT) 38 U/L (3-41) Alkaline Phosphatase 120 U/L (40-129) Total Protein 5.9 g/dL (6.6-8.7) L Albumin 2.9 g/dL (3.5-5.2) L Globulin 3.0 g/dL Albumin/Globulin Ratio 0.9 (1.0-2.7) L Prothrombin Time 12.0 SEC (9.30-11.50) H Prothromb Time International Ratio 1.1 (0.9-1.1) Activated Partial Thromboplast Time 36 SEC (23-33) H Current Medications Medications (Trade) Dose Ordered Sig/Alec Route PRN Reason Start Time Stop Time Status Last Admin Dose Admin Acetaminophen 650 mg 650 mg Q4H PRN ORAL Mild Pain/Temp > 100.5 09/03/16 05:00 10/03/16 04:59 09/04/16 00:09 Meropenem/Sodium Chloride (Merrem/Sodium Chloride) 100 ml @ 200 mls/hr Q8HR IVPB 09/03/16 15:30 09/08/16 15:29 09/04/16 05:53 Ondansetron HCl (Zofran) 4 mg Q6H PRN IVP Nausea & Vomiting 09/03/16 06:00 10/03/16 05:59 Sodium Chloride 1,000 ml @ 150 mls/hr Q6H40M IV 09/03/16 10:00 10/03/16 09:59 09/04/16 10:45 JUSTYN GRANGER Sep 04, 2016 16:18
[2016-09-04 20:00] VITALS: BP 119/70
[2016-09-05] VITALS: BP 118/80
--- NOTE | 2016-09-05 00:45 | Consultation ---
DATE OF CONSULTATION: 09/04/2016 INFECTIOUS DISEASES CONSULTATION CONSULTING PHYSICIAN: Rochelle Amador M.D. ATTENDING PHYSICIAN: Lyn Zavala M.D. REASON FOR CONSULTATION: Sepsis, gram-negative bacteremia, and fevers. The patient's chief complaint coming into the hospital is sepsis and fevers. HISTORY OF PRESENT ILLNESS: This is a 56-year-old male, who had a recent prostate biopsy. The patient presents with fever and chills. The workup shows that he has gram-negative bacteremia. Infectious Diseases consultation was requested. I saw the patient yesterday and put him on meropenem to cover ESBL organisms pending results. The patient also was septic with SIRS criteria and fevers. MAR was noted. Orders were noted. Notes and records were reviewed. REVIEW OF SYSTEMS: Constitutional: The patient has generalized weakness. He came in with fever and chills. Head And neck: No head pain or neck pain. No thrush or dysphagia. Cardiac: No chest pain or palpitation Gastrointestinal: No nausea, vomiting, or diarrhea. Genitourinary: No dysuria at this time, CVA tenderness. Pulmonary: No congestion or shortness of breath. Skin: No rash. Neurological: No seizures. PAST MEDICAL HISTORY: The patient's past medical history includes a history of the following: The patient had prostate biopsy from enlarged prostate and it was actually done, it looks like a . The patient came in also with acute kidney injury with elevated creatinine. The patient was also leukopenic and had mild anemia. The patient also had a CT scan, retroperitoneal adenopathy, and looks like also prostatitis. I am not clear on this. No history of diabetes or hypertension. He also has hematuria and proteinuria. ALLERGIES: No known drug allergies. FAMILY HISTORY: Noncontributory. SOCIAL HISTORY: Negative for smoking, alcohol, or drug abuse. MEDICATIONS: Upon reviewing the MAR, the patient is on the following medications. He is on meropenem, Zofran, Tylenol. He was on Cipro, I think prior. PHYSICAL EXAMINATION: VITAL SIGNS: Temperature is 101.8 degrees, pulse rate 100, respiratory rate 20, blood pressure 136/94, and saturation 99%. GENERAL: Alert, responsive, and in no acute distress. Today, he feels better than yesterday. HEAD AND NECK: Oral exam, no thrush. Eye exam, no icterus. Normocephalic. HEART: Regular. No gallop or murmur. ABDOMEN: Soft. Positive bowel sounds. Nontender. No organomegaly. No rebound. LUNGS: Clear bilaterally. No rhonchi or rales. SKIN: No rash or dermatitis. MUSCULOSKELETAL: No effusion. EXTREMITIES: Legs are without cellulitis. PERIPHERAL VASCULAR: No cyanosis or gangrene. NEUROLOGIC: Intact. LINES: Line sites without phlebitis. GENITOURINARY: Without Wolfe. RECTAL: Deferred. LABORATORY DATA: The patient's white count is 4.0, hemoglobin 12.4, and platelet count is 157,000. White count was 2.1 yesterday. Creatinine is 0.9. It was earlier as high as 1.3. Urinalysis had 1+ leukocyte esterase, but only 2-[address] scan of the abdomen and pelvis showed retroperitoneal lymphadenopathy, suspicious for lymphoma or other lymphoproliferative disease. Chest x-ray was negative for pneumonia noted. Urine culture is negative. Blood cultures show gram-negative bacilli. ASSESSMENT AND PLAN: 1. This is a 56-year-old male with gram-negative bacteremia. The patient likely has the gram-negative bacteremia, secondary to prostate biopsy, which is a potential complication of prostate biopsy. There had been reported ESBL organisms with prostate biopsies, and thus, we will give meropenem to cover the gram-negative bacteremia until we identify the gram-negative organism. Continue meropenem. Check blood culture results. Urinalysis fairly unremarkable. It is unclear if he has underlying urinary tract infection. He certainly could have underlying prostatitis, but I will defer to Urology for further evaluation. At this time, we will continue meropenem. Check followup labs, chest x-ray, and blood cultures. 2. Retroperitoneal adenopathy. We will work up per Dr. Zavala, but I think, Hematology/Oncology has been consulted. 3. Leukopenia. 4. Anemia. 5. Benign prostatic hypertrophy or enlarged prostate. 6. Proteinuria and hematuria. 7. No known allergies. 8. Social history is negative. 9. Case discussed per Dr. Zavala. 10. MAR was noted. 11. Notes were reviewed. 12. Case was discussed with RN. Rochelle Amador M.D. DR: Aren JOB#: [id number] CC:
--- NOTE | 2016-09-05 03:15 | Consultation ---
DATE OF CONSULTATION: INFECTIOUS DISEASE CONSULTATION Addendum ASSESSMENT AND PLAN: The patient had gram-negative sepsis. The sepsis is secondary to gram-negative bacteremia, likely secondary to prostate biopsy and possible underlying prostatitis. Rochelle Amador M.D. DR: NATALIE JOB#: [id number] CC:
[2016-09-05 04:00] VITALS: BP 120/70
[2016-09-05 07:08] LABS: BASOPHILS % (AUTO) 0.8 % (0.0-2.0); EOSINOPHILS % (AUTO) 7.6 % (0.0-3.0); LYMPHOCYTES % (AUTO) 13.3 % (20.0-45.0); MEAN CORPUSCULAR HEMOGLOBIN 29.1 PG (27.0-31.0); MEAN CORPUSCULAR HGB CONC 33.6 G/DL (32.0-36.0); MEAN CORPUSCULAR VOLUME 87 FL (80-99); MEAN PLATELET VOLUME 6.3 FL (6.5-10.1); NEUTROPHILS % (AUTO) 71.3 % (45.0-75.0); PLATELET COUNT 148 K/UL (150-450); RED CELL DISTRIBUTION WIDTH 12.3 % (11.6-14.8); WHITE BLOOD COUNT 3.7 K/UL (4.8-10.8)
--- NOTE | 2016-09-05 07:15 | Consultation ---
DATE OF CONSULTATION: 09/04/2016 HEMATOLOGY/ONCOLOGY CONSULTATION CONSULTING PHYSICIAN: Isaac Dietz M.D. REQUESTING PHYSICIAN: Lyn Zavala M.D. REASON FOR CONSULTATION: Evaluation of lymphadenopathy. IDENTIFICATION DATA: Dear Dr. Zavala, The patient is a pleasant 56-year-old male with a past medical history, which is significant for prostate enlargement, presented to the ER recently. No fever or chills. He has had prostate biopsy. He had enlarged prostate earlier. He was discharged home. in the ER, he was noted to have tachycardia. Also, he was noted to have fever with temperature of 102.6 degrees Fahrenheit . CAT scan of the abdomen and pelvis showed retroperitoneal lymphadenopathy. Denies any abdominal pain. Denies any nausea or vomiting. He could not have [place], however, he was admitted and noted on CAT scan to have retroperitoneal lymphadenopathy. Hematology and oncology was consulted, and was placed on antibiotics for possible ESBL. Past Medical History: 01:09 prostate. PAST SURGICAL HISTORY: Status post prostate biopsy. MEDICATIONS: Ciprofloxacin. CODE STATUS: Full Code. REVIEW OF SYSTEMS: Constitutional: No fever or chills noted. Pulmonary: No cough, sputum, or shortness of breath. Cardiovascular: No chest pain, tightness, or palpitations. Gastrointestinal: No nausea, vomiting, or diarrhea. Genitourinary: No dysuria, frequency, or urgency. Musculoskeletal: No joint swelling, muscle pain, or trauma. Neurologic: No syncope. PHYSICAL EXAMINATION: GENERAL: The patient is in no acute distress. VITAL SIGNS: Blood pressure 107/55, pulse of 104, respiratory rate 12, and temperature is 100.4 degrees Fahrenheit. PULMONARY: Decreased breath sounds. CARDIOVASCULAR: Regular rate. No S3 or S4. ABDOMEN: Soft, nontender, and nondistended. EXTREMITIES: There is 1+ pitting edema. LABORATORY DATA: WBC 2.1, hemoglobin 13.1, hematocrit 41, and platelet count 237,000. IMAGING: Some retroperitoneal diffuse lymphadenopathy noted on CAT scan amongst other findings as well has been noted by the primary physician Dr. Lyn Zavala and nurse practitioner . ASSESSMENT AND PLAN: 1. Retroperitoneal diffuse lymphadenopathy will be sent for biopsy. I have discussed extensively with the nurse even though the patient did in fact have a prostate biopsy, he still requires biopsy and the lymphadenopathy noted in the . 2. Aortic lymphadenopathy. In addition, send for tumor markers. 3. Splenomegaly likely related to underlying malignant process and gross infection. Continue to closely monitor. 4. Leukopenia. The patient infection. Okay to administer Neupogen x1 dose. 5. Coagulopathy secondary to malignancy. 6. Hyperkalemia. 7. Prostate specific antigen is 42 concerning for prostate cancer. 8. Elevated CA-99. 9. Lactic acidosis and septic shock, which improved. 10. Gram-negative bacteremia. 11. biopsy report. 12. Discussed with staff. Isaac Dietz M.D. DR: JAVON JOB#: [id number] CC:
[2016-09-05 07:34] LABS: ANION GAP 14 (5-15); CALCIUM 8.4 mg/dL (8.6-10.2); CARBON DIOXIDE 23 mEQ/L (20-30); CHLORIDE 103 mEQ/L (98-107); CREATININE 0.6 mg/dL (0.7-1.2); GLOMERULAR FILTRATION RATE > 60 mL/min (>60); HEMOLYSIS 2; POTASSIUM 4.1 mEQ/L (3.4-4.9); SODIUM 140 mEQ/L (135-145)
[2016-09-05 08:16] VITALS: BP 129/83
--- NOTE | 2016-09-05 09:22 | Urology Progress Note ---
Assessment/Plan Assessment/Plan post prostate bx sepsis BPH hx elevated PSA hx hematuria proteinuria abx as ordered, per ID monitor clinically Subjective Allergies: Coded Allergies: No Known Allergies (Unverified , 09/02/16) Subjective no new changes Objective Last 24 Hour Vital Signs Date Time Temp Pulse Resp B/P Pulse Ox O2 Delivery O2 Flow Rate FiO2 09/05/16 08:16 98.2 84 18 129/83 99 Room Air 09/05/16 04:00 98.4 82 18 120/70 96 Room Air 09/05/16 00:00 98.4 79 18 118/80 99 Room Air 09/04/16 20:27 98.1 09/04/16 20:00 99.9 108 20 119/70 Room Air 09/04/16 16:00 101.8 100 20 136/94 99 Room Air 09/04/16 12:00 97.3 78 20 125/73 100 Room Air Intake and Output 09/04/16 09/05/16 19:00 07:00 Intake Total 1650 ml 1700 ml Balance 1650 ml 1700 ml Intake Oral 200 ml IV Total 1450 ml 1700 ml # Voids 4 5 Microbiology Date/Time Source Procedure Growth Status 09/02/16 21:15 Blood Blood Culture - Final Escherichia Coli - Esbl Complete 09/03/16 17:30 Urine,Clean Catch Urine Culture - Final NO GROWTH AFTER 48 HOURS Complete Current Medications Medications (Trade) Dose Ordered Sig/Alec Route PRN Reason Start Time Stop Time Status Last Admin Dose Admin Acetaminophen 650 mg 650 mg Q4H PRN ORAL Mild Pain/Temp > 100.5 09/03/16 05:00 10/03/16 04:59 09/04/16 19:28 Meropenem/Sodium Chloride (Merrem/Sodium Chloride) 100 ml @ 200 mls/hr Q8HR IVPB 09/03/16 15:30 09/08/16 15:29 09/05/16 05:12 Ondansetron HCl (Zofran) 4 mg Q6H PRN IVP Nausea & Vomiting 09/03/16 06:00 10/03/16 05:59 Sodium Chloride 1,000 ml @ 150 mls/hr Q6H40M IV 09/03/16 10:00 10/03/16 09:59 09/05/16 02:41 Laboratory Tests 09/04/16 14:35: Prothrombin Time 12.0H, Prothromb Time International Ratio 1.1, Activated Partial Thromboplast Time 36H 09/05/16 04:35: White Blood Count 3.7L, Red Blood Count 3.90L, Hemoglobin 11.3L, Hematocrit 33.8L, Mean Corpuscular Volume 87, Mean Corpuscular Hemoglobin 29.1, Mean Corpuscular Hemoglobin Concent 33.6, Red Cell Distribution Width 12.3, Platelet Count 148L, Mean Platelet Volume 6.3L, Neutrophils (%) (Auto) 71.3, Lymphocytes (%) (Auto) 13.3L, Monocytes (%) (Auto) 7.0, Eosinophils (%) (Auto) 7.6H, Basophils (%) (Auto) 0.8, Sodium Level 140, Potassium Level 4.1, Chloride Level 103, Carbon Dioxide Level 23, Anion Gap 14, Blood Urea Nitrogen 8, Creatinine 0.6L, Estimat Glomerular Filtration Rate > 60, Glucose Level 88, Calcium Level 8.4L Height (Feet): 5 Height (Inches): 7.00 Weight (Pounds): 185 Objective exam stable FLORIN PRAJAPATI Sep 05, 2016 09:22
[2016-09-05 11:34] VITALS: BP 119/79
[2016-09-05] MEDS ORDERED: Tubing IV Secondary IV ONE (15:36)
[2016-09-05 15:43] VITALS: BP 127/81
--- NOTE | 2016-09-05 15:46 | General Progress Note ---
Assessment/Plan Problem List: (1) Sepsis Assessment & Plan: Cont IV abx per ID ESBL E coli bacteremia IV fluids Supp care ICD Codes: A41.9 - Sepsis, unspecified organism SNOMED: 52756670, 52963677, 25490803 Qualifiers: Qualified Codes: A41.9 - Sepsis, unspecified organism (2) Prostatitis, acute Assessment & Plan: Apprec urology eval No surgical intervention needed PSA noted Cont IV abx per ID f/u blood cx ICD Codes: N41.0 - Acute prostatitis SNOMED: 99050994, 5903655 (3) Lymphadenopathy, abdominal Assessment & Plan: Seen on CT scan, concerning for possible lymphoma or other proliferative disorder Apprec [facility] eval, will pursue workup while remains inpatient for treatment of sepsis, IR for CT guided biopsy of lymphadenopathy ICD Codes: R59.0 - Localized enlarged lymph nodes SNOMED: 427100421 Subjective Date patient seen: Sep 05, 2016 Time patient seen: 15:41 ROS Limited/Unobtainable: No Allergies: Coded Allergies: No Known Allergies (Unverified , 09/02/16) Subjective Seen by [facility], no further tachycardia, no fevers/chills, blood cx growing ESBL e coli, on meropenem, feels better overall Objective Last 24 Hour Vital Signs Date Time Temp Pulse Resp B/P Pulse Ox O2 Delivery O2 Flow Rate FiO2 09/05/16 11:34 97.7 79 19 119/79 98 Room Air 09/05/16 08:16 98.2 84 18 129/83 99 Room Air 09/05/16 04:00 98.4 82 18 120/70 96 Room Air 09/05/16 00:00 98.4 79 18 118/80 99 Room Air 09/04/16 20:27 98.1 09/04/16 20:00 99.9 108 20 119/70 Room Air 09/04/16 16:00 101.8 100 20 136/94 99 Room Air Intake and Output 09/04/16 09/05/16 19:00 07:00 Intake Total 1650 ml 1700 ml Balance 1650 ml 1700 ml Intake Oral 200 ml IV Total 1450 ml 1700 ml # Voids 4 5 Laboratory Tests 09/05/16 04:35: White Blood Count 3.7L, Red Blood Count 3.90L, Hemoglobin 11.3L, Hematocrit 33.8L, Mean Corpuscular Volume 87, Mean Corpuscular Hemoglobin 29.1, Mean Corpuscular Hemoglobin Concent 33.6, Red Cell Distribution Width 12.3, Platelet Count 148L, Mean Platelet Volume 6.3L, Neutrophils (%) (Auto) 71.3, Lymphocytes (%) (Auto) 13.3L, Monocytes (%) (Auto) 7.0, Eosinophils (%) (Auto) 7.6H, Basophils (%) (Auto) 0.8, Sodium Level 140, Potassium Level 4.1, Chloride Level 103, Carbon Dioxide Level 23, Anion Gap 14, Blood Urea Nitrogen 8, Creatinine 0.6L, Estimat Glomerular Filtration Rate > 60, Glucose Level 88, Calcium Level 8.4L Height (Feet): 5 Height (Inches): 7.00 Weight (Pounds): 185 Objective General: alert, cooperative, no distress, appears stated age Head: normocephalic, without obvious abnormality, atraumatic Eyes: conjunctivae/corneas clear. PERRL, EOM's intact Throat: lips, mucosa, and tongue normal. MMM Neck: supple, symmetrical, trachea midline, and no JVD Lungs: clear to auscultation bilaterally Heart: regular rate and rhythm, S1, S2 normal, no murmur, click, rub or gallop Abdomen: soft, non-tender, non-distended, bowel sounds normal; no masses or organomegaly Extremities: extremities normal, atraumatic, no cyanosis or edema Pulses: 2+ and symmetric Skin: skin color, texture, turgor normal; no rashes or lesions Neurologic: grossly normal, no focal deficits JAYME CHRISTY Sep 05, 2016 15:46
[2016-09-05 20:00] VITALS: BP 132/89
[2016-09-06] VITALS: BP 139/89
[2016-09-06 04:00] VITALS: BP 123/79
[2016-09-06 07:48] VITALS: BP 130/82
--- NOTE | 2016-09-06 09:42 | Urology Progress Note ---
Assessment/Plan Assessment/Plan post prostate bx sepsis BPH hx elevated PSA hx hematuria proteinuria abx as ordered, per ID monitor clinically, improving Subjective Allergies: Coded Allergies: No Known Allergies (Unverified , 09/02/16) Subjective no new changes, some hematuria Objective Last 24 Hour Vital Signs Date Time Temp Pulse Resp B/P Pulse Ox O2 Delivery O2 Flow Rate FiO2 09/06/16 07:48 98.6 84 19 130/82 96 Room Air 09/06/16 04:00 97.9 79 18 123/79 97 Room Air 09/06/16 00:00 98.4 82 18 139/89 98 Room Air 09/05/16 20:00 98.2 82 18 132/89 98 Room Air 09/05/16 15:43 97.9 82 19 127/81 97 Room Air 09/05/16 11:34 97.7 79 19 119/79 98 Room Air Intake and Output 09/05/16 09/06/16 19:00 07:00 Intake Total 1920 ml 2000 ml Balance 1920 ml 2000 ml Intake Oral 620 ml IV Total 1300 ml 2000 ml # Voids 4 4 # Bowel Movements 1 Microbiology Date/Time Source Procedure Growth Status 09/04/16 05:30 Blood Blood Culture - Preliminary NO GROWTH AFTER 48 HOURS Resulted 09/03/16 17:30 Urine,Clean Catch Urine Culture - Final NO GROWTH AFTER 48 HOURS Complete Current Medications Medications (Trade) Dose Ordered Sig/Alec Route PRN Reason Start Time Stop Time Status Last Admin Dose Admin Acetaminophen 650 mg 650 mg Q4H PRN ORAL Mild Pain/Temp > 100.5 09/03/16 05:00 10/03/16 04:59 09/04/16 19:28 Meropenem/Sodium Chloride (Merrem/Sodium Chloride) 100 ml @ 200 mls/hr Q8HR IVPB 09/03/16 15:30 09/08/16 15:29 09/06/16 05:28 Ondansetron HCl (Zofran) 4 mg Q6H PRN IVP Nausea & Vomiting 09/03/16 06:00 10/03/16 05:59 Sodium Chloride 1,000 ml @ 150 mls/hr Q6H40M IV 09/03/16 10:00 10/03/16 09:59 09/06/16 05:27 Height (Feet): 5 Height (Inches): 7.00 Weight (Pounds): 185 Objective exam stable FLORIN PRAJAPATI Sep 06, 2016 09:42
--- NOTE | 2016-09-06 11:14 | General Progress Note ---
Assessment/Plan Problem List: (1) Sepsis Assessment & Plan: Cont IV abx per ID ESBL E coli bacteremia IV fluids Supp care ICD Codes: A41.9 - Sepsis, unspecified organism SNOMED: 61923018, 82661430, 80435562 Qualifiers: Qualified Codes: A41.9 - Sepsis, unspecified organism (2) Prostatitis, acute Assessment & Plan: Apprec urology eval No surgical intervention needed PSA noted Cont IV abx per ID f/u blood cx ICD Codes: N41.0 - Acute prostatitis SNOMED: 09115086, 0110625 (3) Lymphadenopathy, abdominal Assessment & Plan: Seen on CT scan, concerning for possible lymphoma or other proliferative disorder Apprec [facility] eval, will pursue workup while remains inpatient for treatment of sepsis, IR for CT guided biopsy of lymphadenopathy ICD Codes: R59.0 - Localized enlarged lymph nodes SNOMED: 234129829 Subjective Date patient seen: Sep 06, 2016 Time patient seen: 11:14 Allergies: Coded Allergies: No Known Allergies (Unverified , 09/02/16) Subjective Seen by [facility], no further tachycardia, no fevers/chills, blood cx growing ESBL e coli, on meropenem, feels better overall Objective Last 24 Hour Vital Signs Date Time Temp Pulse Resp B/P Pulse Ox O2 Delivery O2 Flow Rate FiO2 09/06/16 07:48 98.6 84 19 130/82 96 Room Air 09/06/16 04:00 97.9 79 18 123/79 97 Room Air 09/06/16 00:00 98.4 82 18 139/89 98 Room Air 09/05/16 20:00 98.2 82 18 132/89 98 Room Air 09/05/16 15:43 97.9 82 19 127/81 97 Room Air 09/05/16 11:34 97.7 79 19 119/79 98 Room Air Intake and Output 09/05/16 09/06/16 19:00 07:00 Intake Total 1920 ml 2000 ml Balance 1920 ml 2000 ml Intake Oral 620 ml IV Total 1300 ml 2000 ml # Voids 4 4 # Bowel Movements 1 Height (Feet): 5 Height (Inches): 7.00 Weight (Pounds): 185 Objective General: alert, cooperative, no distress, appears stated age Head: normocephalic, without obvious abnormality, atraumatic Eyes: conjunctivae/corneas clear. PERRL, EOM's intact Throat: lips, mucosa, and tongue normal. MMM Neck: supple, symmetrical, trachea midline, and no JVD Lungs: clear to auscultation bilaterally Heart: regular rate and rhythm, S1, S2 normal, no murmur, click, rub or gallop Abdomen: soft, non-tender, non-distended, bowel sounds normal; no masses or organomegaly Extremities: extremities normal, atraumatic, no cyanosis or edema Pulses: 2+ and symmetric Skin: skin color, texture, turgor normal; no rashes or lesions Neurologic: grossly normal, no focal deficits JAYME CHRISTY Sep 06, 2016 11:14
[2016-09-06 11:29] VITALS: BP 121/81
--- NOTE | 2016-09-06 13:07 | Infectious Diseases Prog Note ---
Assessment/Plan Assessment/Plan ASSESSMENT AND PLAN: 1. e.coli bacteremia bacteremia and sepsis - likely source is prostate biopsy - continue meropenem - day # 3 abx - surveillance blood cultures are negative - clinically better - can transition to IV Ertapenem at home - will need a total of 14 days iv abx 2. Retroperitoneal adenopathy - ? lymphoma, for biopsy 3. Leukopenia. 4. Anemia. 5. Benign prostatic hypertrophy or enlarged prostate. 6. Proteinuria and hematuria. 7. No known allergies. 8. Social history is negative. 9. Case discussed per Dr. Zavala. 10. MAR was noted. 11. Notes were reviewed. 12. Case was discussed with RN. 13. - va Subjective Constitutional: Denies: chills, fever Respiratory: Denies: shortness of breath Cardiovascular: Denies: chest pain, palpitations Gastrointestinal/Abdominal: Denies: nausea, vomiting Genitourinary: Reports: other - no suh Neurologic: Denies: headache Psychiatric: Denies: depression Skin: Denies: rash Hematologic: Denies: bleeding Musculoskeletal: Denies: pain Allergies: Coded Allergies: No Known Allergies (Unverified , 09/02/16) Objective Vital Signs Last 24 Hour Vital Signs Date Time Temp Pulse Resp B/P Pulse Ox O2 Delivery O2 Flow Rate FiO2 09/06/16 11:29 98.2 80 18 121/81 97 Room Air 09/06/16 07:48 98.6 84 19 130/82 96 Room Air 09/06/16 04:00 97.9 79 18 123/79 97 Room Air 09/06/16 00:00 98.4 82 18 139/89 98 Room Air 09/05/16 20:00 98.2 82 18 132/89 98 Room Air 09/05/16 15:43 97.9 82 19 127/81 97 Room Air Height (Feet): 5 Height (Inches): 7.00 Weight (Pounds): 185 General Appearance: no acute distress HEENT: normocephalic, atraumatic, anicteric, mucous membranes moist, PERRL, EOMI, pharynx normal, supple, no JVD Respiratory/Chest: lungs clear, normal breath sounds, no respiratory distress, respiratory distress Cardiovascular: normal peripheral pulses, normal rate, regular rhythm, no gallop/murmur, no JVD Abdomen: normal bowel sounds, soft, non tender, no organomegaly, non distended Genitourinary: other - no suh Extremities: no cyanosis Skin: no rash 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 Inflammatory or neoplastic process not excludable. No evidence of perforation or abscess. Urinary bladder distention may reflect outlet obstruction. Mild bilateral renal collecting system fullness may be secondary to this as well. Correlate clinically. No other evidence of acute abdominopelvic disease, with limitation as described. Subtle but potentially significant abnormalities the gastrointestinal tract may be missed. Repeat CT scan with full oral and IV contrast preparation recommended for more complete evaluation, as clinically indicated Right colonic diverticulosis Pulmonary bibasal subsegmental atelectasis Degenerative spondylosis Microbiology Date/Time Source Procedure Growth Status 09/04/16 05:30 Blood Blood Culture - Preliminary NO GROWTH AFTER 48 HOURS Resulted 09/04/16 05:20 Blood Blood Culture - Preliminary NO GROWTH AFTER 48 HOURS Resulted 09/03/16 17:30 Urine,Clean Catch Urine Culture - Final NO GROWTH AFTER 48 HOURS Complete initial blood cultures - esbl e.coli Labs Test 09/03/16 20:15 09/04/16 05:20 09/04/16 14:35 09/05/16 04:35 Reticulocyte Count 0.5 % (0.0-2.0) Uric Acid 3.9 mg/dL (3.0-7.5) Lactate Dehydrogenase 452 U/L (135-230) Carcinoembryonic Antigen 1.8 ng/mL CA 15-3 Antigen 19.5 U/mL (0.0-25.0) CA 19-9 Antigen 24.58 U/mL (< 37) Prostate Specific Antigen 41.6 ng/mL (< 3.5) White Blood Count 4.0 K/UL (4.8-10.8) 3.7 K/UL (4.8-10.8) Red Blood Count 4.23 M/UL (4.70-6.10) 3.90 M/UL (4.70-6.10) Hemoglobin 12.4 G/DL (14.2-18.0) 11.3 G/DL (14.2-18.0) Hematocrit 36.9 % (42.0-52.0) 33.8 % (42.0-52.0) Mean Corpuscular Volume 87 FL (80-99) 87 FL (80-99) Mean Corpuscular Hemoglobin 29.4 PG (27.0-31.0) 29.1 PG (27.0-31.0) Mean Corpuscular Hemoglobin Concent 33.6 G/DL (32.0-36.0) 33.6 G/DL (32.0-36.0) Red Cell Distribution Width 12.3 % (11.6-14.8) 12.3 % (11.6-14.8) Platelet Count 157 K/UL (150-450) 148 K/UL (150-450) Mean Platelet Volume 5.9 FL (6.5-10.1) 6.3 FL (6.5-10.1) Neutrophils (%) (Auto) % (45.0-75.0) 71.3 % (45.0-75.0) Lymphocytes (%) (Auto) % (20.0-45.0) 13.3 % (20.0-45.0) Monocytes (%) (Auto) % (1.0-10.0) 7.0 % (1.0-10.0) Eosinophils (%) (Auto) % (0.0-3.0) 7.6 % (0.0-3.0) Basophils (%) (Auto) % (0.0-2.0) 0.8 % (0.0-2.0) Sodium Level 140 mEQ/L (135-145) 140 mEQ/L (135-145) Potassium Level 3.3 mEQ/L (3.4-4.9) 4.1 mEQ/L (3.4-4.9) Chloride Level 103 mEQ/L (98-107) 103 mEQ/L (98-107) Carbon Dioxide Level 21 mEQ/L (20-30) 23 mEQ/L (20-30) Anion Gap 16 (5-15) 14 (5-15) Blood Urea Nitrogen 9 mg/dL (7-23) 8 mg/dL (7-23) Creatinine 0.9 mg/dL (0.7-1.2) 0.6 mg/dL (0.7-1.2) Estimat Glomerular Filtration Rate > 60 mL/min (>60) > 60 mL/min (>60) Glucose Level 93 mg/dL (74-106) 88 mg/dL (74-106) Calcium Level 8.0 mg/dL (8.6-10.2) 8.4 mg/dL (8.6-10.2) Total Bilirubin 1.1 mg/dL (0.0-1.2) Direct Bilirubin 0.5 mg/dL (0.1-0.3) Aspartate Amino Transf (AST/SGOT) 62 U/L (5-40) Alanine Aminotransferase (ALT/SGPT) 38 U/L (3-41) Alkaline Phosphatase 120 U/L (40-129) Total Protein 5.9 g/dL (6.6-8.7) Albumin 2.9 g/dL (3.5-5.2) Globulin 3.0 g/dL Albumin/Globulin Ratio 0.9 (1.0-2.7) Prothrombin Time 12.0 SEC (9.30-11.50) Prothromb Time International Ratio 1.1 (0.9-1.1) Activated Partial Thromboplast Time 36 SEC (23-33) Current Medications Medications (Trade) Dose Ordered Sig/Alec Route PRN Reason Start Time Stop Time Status Last Admin Dose Admin Acetaminophen 650 mg 650 mg Q4H PRN ORAL Mild Pain/Temp > 100.5 09/03/16 05:00 10/03/16 04:59 09/04/16 19:28 Meropenem/Sodium Chloride (Merrem/Sodium Chloride) 100 ml @ 200 mls/hr Q8HR IVPB 09/03/16 15:30 09/08/16 15:29 09/06/16 05:28 Ondansetron HCl (Zofran) 4 mg Q6H PRN IVP Nausea & Vomiting 09/03/16 06:00 10/03/16 05:59 Sodium Chloride 1,000 ml @ 150 mls/hr Q6H40M IV 09/03/16 10:00 10/03/16 09:59 09/06/16 11:39 JUSTYN GRANGER Sep 06, 2016 13:07
[2016-09-06] MEDS ORDERED: Meropenem 1 GM in NS 110 ML IVPB SCH (14:41)
[2016-09-06] MEDS: Meropenem 1 GM in NS 110 ML IVPB SCH ×2 (14:55→21:36)
--- NOTE | 2016-09-06 15:09 | General Progress Note ---
Assessment/Plan Assessment/Plan 1. Retroperitoneal diffuse lymphadenopathy will be sent for biopsy. I have discussed extensively with the nurse even though the patient did in fact have a prostate biopsy, he still requires biopsy and the lymphadenopathy noted in the retroperitoneum. ---> unable to perform biopsy, will be arranged for next week. 2. Aortic lymphadenopathy. In addition, send for tumor markers. ---> pending 3. Splenomegaly likely related to underlying malignant process and gross infection. Continue to closely monitor. 4. Leukopenia. The patient likely has infection. Okay to administer Neupogen x1 dose. 5. Coagulopathy secondary to malignancy. 6. Hyperkalemia. 7. Prostate specific antigen is 42 concerning for prostate cancer. 8. Elevated CA-99. 9. Lactic acidosis and septic shock, which improved. 10. Gram-negative bacteremia. 11. Follow up on biopsy report. 12. Discussed with staff. Subjective Date patient seen: Sep 05, 2016 Constitutional: Reports: no symptoms HEENT: Reports: no symptoms Cardiovascular: Reports: no symptoms Respiratory: Reports: no symptoms Gastrointestinal/Abdominal: Reports: no symptoms Genitourinary: Reports: no symptoms Neurologic/Psychiatric: Reports: no symptoms Endocrine: Reports: no symptoms Allergies: Coded Allergies: No Known Allergies (Unverified , 09/02/16) Subjective no s/s of distress, no events overnight Objective Last 24 Hour Vital Signs Date Time Temp Pulse Resp B/P Pulse Ox O2 Delivery O2 Flow Rate FiO2 09/06/16 11:29 98.2 80 18 121/81 97 Room Air 09/06/16 07:48 98.6 84 19 130/82 96 Room Air 09/06/16 04:00 97.9 79 18 123/79 97 Room Air 09/06/16 00:00 98.4 82 18 139/89 98 Room Air 09/05/16 20:00 98.2 82 18 132/89 98 Room Air 09/05/16 15:43 97.9 82 19 127/81 97 Room Air Intake and Output 09/05/16 09/06/16 19:00 07:00 Intake Total 1920 ml 2000 ml Balance 1920 ml 2000 ml Intake Oral 620 ml IV Total 1300 ml 2000 ml # Voids 4 4 # Bowel Movements 1 Height (Feet): 5 Height (Inches): 7.00 Weight (Pounds): 185 General Appearance: no apparent distress EENT: normal ENT inspection Neck: non-tender Cardiovascular: normal peripheral pulses Respiratory/Chest: chest wall non-tender Edema: no edema noted Pedal (L), no edema noted Pedal (R) Skin: warm/dry Isaac Dietz Sep 06, 2016 15:09
--- NOTE | 2016-09-06 15:14 | General Progress Note ---
Assessment/Plan Assessment/Plan 1. Retroperitoneal diffuse lymphadenopathy will be sent for biopsy. I have discussed extensively with the nurse even though the patient did in fact have a prostate biopsy, he still requires biopsy and the lymphadenopathy noted in the retroperitoneum. ---> unable to perform ct guided biopsy, will be arranged for next week. 2. Aortic lymphadenopathy. In addition, send for tumor markers. ---> only psa is elevated, the others are wnl 3. Splenomegaly likely related to underlying malignant process and gross infection. Continue to closely monitor. 4. Leukopenia. The patient likely has infection. Okay to administer Neupogen x1 dose. 5. Coagulopathy secondary to malignancy. 6. Hyperkalemia. 7. Prostate specific antigen is 42 concerning for prostate cancer. 8. Elevated CA-99. 9. Lactic acidosis and septic shock, which improved. 10. Gram-negative bacteremia. 11. Follow up on biopsy report. 12. Discussed with staff. Subjective Constitutional: Reports: no symptoms HEENT: Reports: no symptoms Cardiovascular: Reports: no symptoms Respiratory: Reports: no symptoms Gastrointestinal/Abdominal: Reports: no symptoms Genitourinary: Reports: no symptoms Neurologic/Psychiatric: Reports: no symptoms Endocrine: Reports: no symptoms Hematologic/Lymphatic: Reports: no symptoms Allergies: Coded Allergies: No Known Allergies (Unverified , 09/02/16) Subjective no s/s of distress, at bedside Objective Last 24 Hour Vital Signs Date Time Temp Pulse Resp B/P Pulse Ox O2 Delivery O2 Flow Rate FiO2 09/06/16 11:29 98.2 80 18 121/81 97 Room Air 09/06/16 07:48 98.6 84 19 130/82 96 Room Air 09/06/16 04:00 97.9 79 18 123/79 97 Room Air 09/06/16 00:00 98.4 82 18 139/89 98 Room Air 09/05/16 20:00 98.2 82 18 132/89 98 Room Air 09/05/16 15:43 97.9 82 19 127/81 97 Room Air Intake and Output 09/05/16 09/06/16 19:00 07:00 Intake Total 1920 ml 2000 ml Balance 1920 ml 2000 ml Intake Oral 620 ml IV Total 1300 ml 2000 ml # Voids 4 4 # Bowel Movements 1 Height (Feet): 5 Height (Inches): 7.00 Weight (Pounds): 185 General Appearance: no apparent distress EENT: PERRL/EOMI Neck: normal alignment Cardiovascular: normal rate Respiratory/Chest: chest wall non-tender Abdomen: normal bowel sounds Edema: no edema noted Pedal (L), no edema noted Pedal (R) Neurologic: no motor/sensory deficits Skin: warm/dry Isaac Dietz Sep 06, 2016 15:14
[2016-09-06 15:39] VITALS: BP 126/84
[2016-09-06 20:00] VITALS: BP 138/88
[2016-09-07] VITALS: BP 122/75
[2016-09-07 04:00] VITALS: BP 132/72
[2016-09-07] MEDS: Meropenem 1 GM in NS 110 ML IVPB SCH ×3 (05:40→21:17)
[2016-09-07 06:54] LABS: BASOPHILS % (AUTO) 1.3 % (0.0-2.0); EOSINOPHILS % (AUTO) 14.2 % (0.0-3.0); LYMPHOCYTES % (AUTO) 14.1 % (20.0-45.0); MEAN CORPUSCULAR HEMOGLOBIN 29.7 PG (27.0-31.0); MEAN CORPUSCULAR HGB CONC 34.7 G/DL (32.0-36.0); MEAN CORPUSCULAR VOLUME 86 FL (80-99); MONOCYTES % (AUTO) 12.2 % (1.0-10.0); NEUTROPHILS % (AUTO) 58.1 % (45.0-75.0); PLATELET COUNT 199 K/UL (150-450); RED BLOOD COUNT 3.93 M/UL (4.70-6.10); WHITE BLOOD COUNT 4.1 K/UL (4.8-10.8)
[2016-09-07 07:09] LABS: ANION GAP 10 (5-15); CALCIUM 8.3 mg/dL (8.6-10.2); CARBON DIOXIDE 24 mEQ/L (20-30); CHLORIDE 106 mEQ/L (98-107); CREATININE 0.6 mg/dL (0.7-1.2); GLOMERULAR FILTRATION RATE > 60 mL/min (>60); HEMOLYSIS 1; POTASSIUM 3.6 mEQ/L (3.4-4.9); SODIUM 140 mEQ/L (135-145)
[2016-09-07 08:00] VITALS: BP 122/79
[2016-09-07] MEDS ORDERED: Lidocaine 1% Plain 30 ml INJ PRN (11:45)
[2016-09-07] MEDS ORDERED: Heparin 2000 units/Ns 1000ml INJ PRN (11:45)
[2016-09-07 12:00] VITALS: BP 120/69
--- NOTE | 2016-09-07 12:22 | Urology Progress Note ---
Assessment/Plan Assessment/Plan post prostate bx sepsis BPH hx elevated PSA hx hematuria proteinuria abx as ordered, per ID monitor clinically, improving w/u for lymphadenopathy Subjective Allergies: Coded Allergies: No Known Allergies (Unverified , 09/02/16) Subjective no new changes Objective Last 24 Hour Vital Signs Date Time Temp Pulse Resp B/P Pulse Ox O2 Delivery O2 Flow Rate FiO2 09/07/16 08:00 97.9 67 20 122/79 99 Room Air 09/07/16 04:00 97.7 67 20 132/72 99 Room Air 09/07/16 00:00 97.9 77 20 122/75 98 Room Air 09/06/16 20:00 97.7 69 20 138/88 99 Room Air 09/06/16 15:39 97.9 81 19 126/84 98 Room Air Intake and Output 09/06/16 09/07/16 19:00 07:00 Intake Total 620 ml 1570 ml Balance 620 ml 1570 ml Intake Oral 620 ml IV Total 1570 ml # Voids 4 3 # Bowel Movements 1 Microbiology Date/Time Source Procedure Growth Status 09/04/16 05:30 Blood Blood Culture - Preliminary NO GROWTH AFTER 72 HOURS Resulted 09/03/16 17:30 Urine,Clean Catch Urine Culture - Final NO GROWTH AFTER 48 HOURS Complete Current Medications Medications (Trade) Dose Ordered Sig/Alec Route PRN Reason Start Time Stop Time Status Last Admin Dose Admin Acetaminophen 650 mg 650 mg Q4H PRN ORAL Mild Pain/Temp > 100.5 09/03/16 05:00 10/03/16 04:59 09/04/16 19:28 Chlorhexidine Gluconate (Martha-Hex 2%) 1 applic DAILY TOPIC 09/08/16 09:00 10/08/16 08:59 Heparin Sodium/ Sodium Chloride (Heparin 2000 units/Ns 1000ml premix) 2,000 unit ONCE PRN INJ PICC PLACEMENT 09/07/16 11:45 09/08/16 23:59 Lidocaine HCl (Xylocaine 1% 30ml) 30 ml ONCE PRN INJ FOR PICC PLACEMENT 09/07/16 11:45 09/08/16 23:59 Meropenem/Sodium Chloride (Merrem/Sodium Chloride) 110 ml @ 220 mls/hr Q8HR IVPB 09/06/16 15:00 09/11/16 14:59 09/07/16 05:40 Ondansetron HCl (Zofran) 4 mg Q6H PRN IVP Nausea & Vomiting 09/03/16 06:00 10/03/16 05:59 Sodium Chloride 1,000 ml @ 150 mls/hr Q6H40M IV 09/03/16 10:00 10/03/16 09:59 09/07/16 05:40 Laboratory Tests 09/07/16 04:50: White Blood Count 4.1L, Red Blood Count 3.93L, Hemoglobin 11.7L, Hematocrit 33.6L, Mean Corpuscular Volume 86, Mean Corpuscular Hemoglobin 29.7, Mean Corpuscular Hemoglobin Concent 34.7, Red Cell Distribution Width 12.0, Platelet Count 199, Mean Platelet Volume 6.0L, Neutrophils (%) (Auto) 58.1, Lymphocytes ( %) (Auto) 14.1L, Monocytes (%) (Auto) 12.2H, Eosinophils (%) (Auto) 14.2H, Basophils (%) (Auto) 1.3, Sodium Level 140, Potassium Level 3.6, Chloride Level 106, Carbon Dioxide Level 24, Anion Gap 10, Blood Urea Nitrogen 7, Creatinine 0.6L, Estimat Glomerular Filtration Rate > 60, Glucose Level 97, Calcium Level 8.3L Height (Feet): 5 Height (Inches): 7.00 Weight (Pounds): 185 Objective exam stable FLORIN PRAJAPATI Sep 07, 2016 12:22
--- NOTE | 2016-09-07 14:48 | General Progress Note ---
Assessment/Plan Problem List: (1) Sepsis Assessment & Plan: Cont IV abx per ID ESBL E coli bacteremia IV fluids Supp care ICD Codes: A41.9 - Sepsis, unspecified organism SNOMED: 66691009, 01895247, [id number] Qualifiers: Qualified Codes: A41.9 - Sepsis, unspecified organism (2) Prostatitis, acute Assessment & Plan: Apprec urology eval No surgical intervention needed PSA noted Cont IV abx per ID f/u blood cx ICD Codes: N41.0 - Acute prostatitis SNOMED: 19900818, 1094784 (3) Lymphadenopathy, abdominal Assessment & Plan: Seen on CT scan, concerning for possible lymphoma or other proliferative disorder Apprec [facility] eval, will pursue workup while remains inpatient for treatment of sepsis, IR for CT guided biopsy of lymphadenopathy tomorrow ICD Codes: R59.0 - Localized enlarged lymph nodes SNOMED: 479558941 Subjective Date patient seen: Sep 07, 2016 Time patient seen: 14:47 ROS Limited/Unobtainable: No Allergies: Coded Allergies: No Known Allergies (Unverified , 09/02/16) Subjective Seen by [facility], no further tachycardia, no fevers/chills, blood cx growing ESBL e coli, on meropenem, feels better overall, was supposed to get IR guided biopsy of lymphadenopathy, changed to tomorrow Objective Last 24 Hour Vital Signs Date Time Temp Pulse Resp B/P Pulse Ox O2 Delivery O2 Flow Rate FiO2 09/07/16 12:00 98.0 69 20 120/69 99 Room Air 09/07/16 08:00 97.9 67 20 122/79 99 Room Air 09/07/16 04:00 97.7 67 20 132/72 99 Room Air 09/07/16 00:00 97.9 77 20 122/75 98 Room Air 09/06/16 20:00 97.7 69 20 138/88 99 Room Air 09/06/16 15:39 97.9 81 19 126/84 98 Room Air Intake and Output 09/06/16 09/07/16 19:00 07:00 Intake Total 620 ml 1570 ml Balance 620 ml 1570 ml Intake Oral 620 ml IV Total 1570 ml # Voids 4 3 # Bowel Movements 1 Laboratory Tests 09/07/16 04:50: White Blood Count 4.1L, Red Blood Count 3.93L, Hemoglobin 11.7L, Hematocrit 33.6L, Mean Corpuscular Volume 86, Mean Corpuscular Hemoglobin 29.7, Mean Corpuscular Hemoglobin Concent 34.7, Red Cell Distribution Width 12.0, Platelet Count 199, Mean Platelet Volume 6.0L, Neutrophils (%) (Auto) 58.1, Lymphocytes ( %) (Auto) 14.1L, Monocytes (%) (Auto) 12.2H, Eosinophils (%) (Auto) 14.2H, Basophils (%) (Auto) 1.3, Sodium Level 140, Potassium Level 3.6, Chloride Level 106, Carbon Dioxide Level 24, Anion Gap 10, Blood Urea Nitrogen 7, Creatinine 0.6L, Estimat Glomerular Filtration Rate > 60, Glucose Level 97, Calcium Level 8.3L Height (Feet): 5 Height (Inches): 7.00 Weight (Pounds): 185 Objective General: alert, cooperative, no distress, appears stated age Head: normocephalic, without obvious abnormality, atraumatic Eyes: conjunctivae/corneas clear. PERRL, EOM's intact Throat: lips, mucosa, and tongue normal. MMM Neck: supple, symmetrical, trachea midline, and no JVD Lungs: clear to auscultation bilaterally Heart: regular rate and rhythm, S1, S2 normal, no murmur, click, rub or gallop Abdomen: soft, non-tender, non-distended, bowel sounds normal; no masses or organomegaly Extremities: extremities normal, atraumatic, no cyanosis or edema Pulses: 2+ and symmetric Skin: skin color, texture, turgor normal; no rashes or lesions Neurologic: grossly normal, no focal deficits JAYME CHRISTY Sep 07, 2016 14:48
--- NOTE | 2016-09-07 15:27 | General Progress Note ---
Assessment/Plan Assessment/Plan 1. Retroperitoneal diffuse lymphadenopathy will be sent for biopsy. I have discussed extensively with the nurse even though the patient did in fact have a prostate biopsy, he still requires biopsy and the lymphadenopathy noted in the retroperitoneum. ---> ct guided biopsy is arranged for tomorrow 2. Aortic lymphadenopathy. In addition, send for tumor markers. ---> only psa is elevated, the others are wnl 3. Splenomegaly likely related to underlying malignant process and gross infection. Continue to closely monitor. 4. Leukopenia. The patient likely has infection. Okay to administer Neupogen x1 dose. 5. Coagulopathy secondary to malignancy. 6. Hyperkalemia. 7. Prostate specific antigen is 42 concerning for prostate cancer. 8. Elevated CA-99. 9. Lactic acidosis and septic shock, which improved. 10. Gram-negative bacteremia. 11. Follow up on biopsy report. 12. Discussed with staff. Subjective Constitutional: Reports: no symptoms HEENT: Reports: no symptoms Cardiovascular: Reports: no symptoms Respiratory: Reports: no symptoms Gastrointestinal/Abdominal: Reports: no symptoms Genitourinary: Reports: no symptoms Neurologic/Psychiatric: Reports: no symptoms Endocrine: Reports: no symptoms Hematologic/Lymphatic: Reports: anemia Allergies: Coded Allergies: No Known Allergies (Unverified , 09/02/16) Subjective biopsy changed to tomorrow Objective Last 24 Hour Vital Signs Date Time Temp Pulse Resp B/P Pulse Ox O2 Delivery O2 Flow Rate FiO2 09/07/16 12:00 98.0 69 20 120/69 99 Room Air 09/07/16 08:00 97.9 67 20 122/79 99 Room Air 09/07/16 04:00 97.7 67 20 132/72 99 Room Air 09/07/16 00:00 97.9 77 20 122/75 98 Room Air 09/06/16 20:00 97.7 69 20 138/88 99 Room Air 09/06/16 15:39 97.9 81 19 126/84 98 Room Air Intake and Output 09/06/16 09/07/16 19:00 07:00 Intake Total 620 ml 1570 ml Balance 620 ml 1570 ml Intake Oral 620 ml IV Total 1570 ml # Voids 4 3 # Bowel Movements 1 Laboratory Tests 09/07/16 04:50: White Blood Count 4.1L, Red Blood Count 3.93L, Hemoglobin 11.7L, Hematocrit 33.6L, Mean Corpuscular Volume 86, Mean Corpuscular Hemoglobin 29.7, Mean Corpuscular Hemoglobin Concent 34.7, Red Cell Distribution Width 12.0, Platelet Count 199, Mean Platelet Volume 6.0L, Neutrophils (%) (Auto) 58.1, Lymphocytes ( %) (Auto) 14.1L, Monocytes (%) (Auto) 12.2H, Eosinophils (%) (Auto) 14.2H, Basophils (%) (Auto) 1.3, Sodium Level 140, Potassium Level 3.6, Chloride Level 106, Carbon Dioxide Level 24, Anion Gap 10, Blood Urea Nitrogen 7, Creatinine 0.6L, Estimat Glomerular Filtration Rate > 60, Glucose Level 97, Calcium Level 8.3L Height (Feet): 5 Height (Inches): 7.00 Weight (Pounds): 185 General Appearance: no apparent distress EENT: PERRL/EOMI Neck: normal alignment Cardiovascular: normal peripheral pulses Respiratory/Chest: chest wall non-tender Abdomen: normal bowel sounds 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
[2016-09-07 16:00] VITALS: BP 127/76
--- NOTE | 2016-09-07 19:04 | Cardiology Report ---
APPROVED REPORT EKG Measurement Heart [id number] Sinus tachycardia Incomplete right bundle branch block T wave abnormality, consider inferior ischemia Abnormal ECG
[2016-09-07 20:00] VITALS: BP 134/82
[2016-09-08] VITALS: BP 132/79
[2016-09-08 04:00] VITALS: BP 127/70
[2016-09-08] MEDS: Meropenem 1 GM in NS 110 ML IVPB SCH ×2 (05:23→14:08)
[2016-09-08 07:57] VITALS: BP 133/86
[2016-09-08] MEDS ORDERED: Dyna-Hex 2% Top Sol 8oz TOPIC SCH (09:00)
[2016-09-08] MEDS ORDERED: Lidocaine 1% Plain 30 ml INJ ONE (11:30)
--- NOTE | 2016-09-08 12:29 | Urology Progress Note ---
Assessment/Plan Assessment/Plan post prostate bx sepsis BPH hx elevated PSA hx hematuria proteinuria abx as ordered, per ID monitor clinically, improving w/u for lymphadenopathy Subjective Allergies: Coded Allergies: No Known Allergies (Unverified , 09/02/16) Subjective no new changes, for bx of RP nodes today Objective Last 24 Hour Vital Signs Date Time Temp Pulse Resp B/P Pulse Ox O2 Delivery O2 Flow Rate FiO2 09/08/16 07:57 98.2 72 21 133/86 99 Room Air 09/08/16 04:00 98.2 67 20 127/70 96 Room Air 09/08/16 00:00 99.0 77 20 132/79 98 Room Air 09/07/16 20:00 97.9 76 20 134/82 100 Room Air 09/07/16 16:00 97.7 71 20 127/76 98 Room Air Intake and Output 09/07/16 09/08/16 19:00 07:00 Intake Total 2600 ml 1570 ml Balance 2600 ml 1570 ml Intake Oral 800 ml IV Total 1800 ml 1570 ml # Voids 5 5 Microbiology Date/Time Source Procedure Growth Status 09/04/16 05:30 Blood Blood Culture - Preliminary NO GROWTH AFTER 4 DAYS Resulted 09/03/16 17:30 Urine,Clean Catch Urine Culture - Final NO GROWTH AFTER 48 HOURS Complete Current Medications Medications (Trade) Dose Ordered Sig/Alec Route PRN Reason Start Time Stop Time Status Last Admin Dose Admin Acetaminophen 650 mg 650 mg Q4H PRN ORAL Mild Pain/Temp > 100.5 09/03/16 05:00 10/03/16 04:59 09/04/16 19:28 Chlorhexidine Gluconate (Martha-Hex 2%) 1 applic DAILY TOPIC 09/09/16 10:00 10/09/16 09:59 Heparin Sodium/ Sodium Chloride (Heparin 2000 units/Ns 1000ml premix) 2,000 unit ONCE PRN INJ PICC PLACEMENT 09/07/16 11:45 09/08/16 23:59 Lidocaine HCl (Xylocaine 1% 30ml) 30 ml ONCE PRN INJ FOR PICC PLACEMENT 09/07/16 11:45 09/08/16 23:59 Meropenem/Sodium Chloride (Merrem/Sodium Chloride) 110 ml @ 220 mls/hr Q8HR IVPB 09/06/16 15:00 09/11/16 14:59 09/08/16 05:23 Ondansetron HCl (Zofran) 4 mg Q6H PRN IVP Nausea & Vomiting 09/03/16 06:00 10/03/16 05:59 Sodium Chloride 1,000 ml @ 150 mls/hr Q6H40M IV 09/03/16 10:00 10/03/16 09:59 09/08/16 04:34 Height (Feet): 5 Height (Inches): 7.00 Weight (Pounds): 185 Objective exam stable FLORIN PRAJAPATI Sep 08, 2016 12:29
--- NOTE | 2016-09-08 13:49 | Diagnostic Imaging Report ---
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 The left upper extremity was prepped with alcohol. All elements of maximal sterile barrier technique were followed including usage of a cap, mask, sterile gown, sterile gloves, hand hygiene and a large sterile sheet. Sonographic evaluation of the upper extremity was performed demonstrating a patent and compressible brachial vein. Access was obtained under real-time ultrasound guidance and digital image was saved and archived. An .018 wire was introduced. Needle exchanged for a 5 [place] peel-away sheath. Measurements were obtained. A 5 [place] dual-lumen Power PICC line catheter was cut to 46cm and introduced over the wire. Peel-away sheath and wire were removed.Catheter was secured to the skin using 2-0 Prolene suture. Both ports aspirate and flush easily. Fluoroscopic Images show distal tip in the superior vena cava. Total fluoroscopic time 0.2 minutes Impression: Successful placement of an upper extremity PICC line catheter
[2016-09-08] MEDS ORDERED: INVANZ1 GM IVPB (14:05)
--- NOTE | 2016-09-08 14:21 | General Progress Note ---
Assessment/Plan Problem List: (1) Sepsis Assessment & Plan: Cont IV abx per ID ESBL E coli bacteremia IV fluids Supp care ICD Codes: A41.9 - Sepsis, unspecified organism SNOMED: 21472051, 19826022, 67657551 Qualifiers: Qualified Codes: A41.9 - Sepsis, unspecified organism (2) Prostatitis, acute Assessment & Plan: Apprec urology eval No surgical intervention needed PSA noted Cont IV abx per ID f/u blood cx ICD Codes: N41.0 - Acute prostatitis SNOMED: 07869082, 3273873 (3) Lymphadenopathy, abdominal Assessment & Plan: Seen on CT scan, concerning for possible lymphoma or other proliferative disorder Apprec [facility] eval, will pursue workup while remains inpatient for treatment of sepsis, s/p CT guided lymph node bx today, will f/u path results as outpt ICD Codes: R59.0 - Localized enlarged lymph nodes SNOMED: 715536753 Subjective Date patient seen: Sep 08, 2016 Time patient seen: 14:20 ROS Limited/Unobtainable: No Allergies: Coded Allergies: No Known Allergies (Unverified , 09/02/16) Subjective s/p CT guided lymph node biopsy and picc line placement earlier today, no complications. No further fevers/chills Objective Last 24 Hour Vital Signs Date Time Temp Pulse Resp B/P Pulse Ox O2 Delivery O2 Flow Rate FiO2 09/08/16 07:57 98.2 72 21 133/86 99 Room Air 09/08/16 04:00 98.2 67 20 127/70 96 Room Air 09/08/16 00:00 99.0 77 20 132/79 98 Room Air 09/07/16 20:00 97.9 76 20 134/82 100 Room Air 09/07/16 16:00 97.7 71 20 127/76 98 Room Air Intake and Output 09/07/16 09/08/16 19:00 07:00 Intake Total 2600 ml 1570 ml Balance 2600 ml 1570 ml Intake Oral 800 ml IV Total 1800 ml 1570 ml # Voids 5 5 Height (Feet): 5 Height (Inches): 7.00 Weight (Pounds): 185 Objective General: alert, cooperative, no distress, appears stated age Head: normocephalic, without obvious abnormality, atraumatic Eyes: conjunctivae/corneas clear. PERRL, EOM's intact Throat: lips, mucosa, and tongue normal. MMM Neck: supple, symmetrical, trachea midline, and no JVD Lungs: clear to auscultation bilaterally Heart: regular rate and rhythm, S1, S2 normal, no murmur, click, rub or gallop Abdomen: soft, non-tender, non-distended, bowel sounds normal; no masses or organomegaly Extremities: extremities normal, atraumatic, no cyanosis or edema Pulses: 2+ and symmetric Skin: skin color, texture, turgor normal; no rashes or lesions Neurologic: grossly normal, no focal deficits JAYME CHRISTY Sep 08, 2016 14:21
--- NOTE | 2016-09-08 14:33 | Diagnostic Imaging Report ---
Indication: Retroperitoneal lymphadenopathy Technique: All preceding relevant cross sectional images were reviewed prior to the procedure. Continuous helical transaxial imaging of the region of interest was then obtained. No IV contrast given. Coronal 2-D reformats were also obtained. Study obtained in a Siemens sensation [address] Scanning was done with the patient prone. Total Dose length Product (DLP): mGycm CT Dose Index Volume (CTDIvol): mGy Comparison: None Procedure and findings: After review of the relevant cross-sectional images, the most feasible and safest percutaneous trajectory and approach was chosen. The skin was then sterilely prepped and draped. 1% lidocaine was administered for local anesthesia. Dermatotomy was made. An 18-gauge trocar was then advanced in the direction of the collection. Adjustments were made until CT confirmed good positioning of the trocar within the adenopathy/mass, which was left paravertebral in location, just medial to the left kidney. 5 core biopsies were performed using an Achieve 18 gauge biopsy device with 2 cm throw after the positioning of the trocar tip was deemed satisfactory. Samples were placed on Telfa and pathologist examined the specimens in real time. Specimens were deemed satisfactory and adequate for diagnosis by the pathologist. At that point, the trocar was removed. The patient tolerated seizure well. There were no complications. Impression: Successful core biopsies of retroperitoneal lymphadenopathy pathology results pending. The CT scanner at [facility] is accredited by the [employer] and the scans are performed using dose optimization techniques as appropriate to a performed exam including Automatic Exposure control.
--- NOTE | 2016-09-08 14:34 | Infectious Diseases Prog Note ---
Assessment/Plan Assessment/Plan ASSESSMENT AND PLAN: 1. e.coli bacteremia bacteremia and sepsis - likely source is prostate biopsy - continue meropenem - day # 5 abx - surveillance blood cultures are negative - clinically better - can transition to IV Ertapenem at home - will need a total of 14 days iv abx, has picc line 2. Retroperitoneal adenopathy - ? lymphoma, s/p biopsy, results pending 3. Leukopenia. 4. Anemia. 5. Benign prostatic hypertrophy or enlarged prostate. 6. Proteinuria and hematuria. 7. No known allergies. 8. Social history is negative. 9. Case discussed per Dr. Zavala. 10. MAR was noted. 11. Notes were reviewed. 12. Case was discussed with RN. 13. - mt Subjective Constitutional: Denies: fever HEENT: Denies: congestion Respiratory: Denies: shortness of breath Cardiovascular: Denies: chest pain Gastrointestinal/Abdominal: Denies: nausea Genitourinary: Denies: dysuria, frequency, hematuria Neurologic: Denies: headache Psychiatric: Denies: depression Skin: Denies: rash Hematologic: Denies: bleeding Musculoskeletal: Denies: pain Allergies: Coded Allergies: No Known Allergies (Unverified , 09/02/16) Objective Vital Signs Last 24 Hour Vital Signs Date Time Temp Pulse Resp B/P Pulse Ox O2 Delivery O2 Flow Rate FiO2 09/08/16 07:57 98.2 72 21 133/86 99 Room Air 09/08/16 04:00 98.2 67 20 127/70 96 Room Air 09/08/16 00:00 99.0 77 20 132/79 98 Room Air 09/07/16 20:00 97.9 76 20 134/82 100 Room Air 09/07/16 16:00 97.7 71 20 127/76 98 Room Air Height (Feet): 5 Height (Inches): 7.00 Weight (Pounds): 185 General Appearance: no acute distress HEENT: normocephalic, atraumatic, anicteric, mucous membranes moist, PERRL, EOMI, pharynx normal, supple, no JVD Respiratory/Chest: lungs clear, normal breath sounds, no respiratory distress, no accessory muscle use Cardiovascular: normal rate, regular rhythm, no gallop/murmur, no JVD Abdomen: normal bowel sounds, soft, non tender, no organomegaly, non distended Genitourinary: other - no suh Extremities: no cyanosis Skin: no rash 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 Inflammatory or neoplastic process not excludable. No evidence of perforation or abscess. Urinary bladder distention may reflect outlet obstruction. Mild bilateral renal collecting system fullness may be secondary to this as well. Correlate clinically. No other evidence of acute abdominopelvic disease, with limitation as described. Subtle but potentially significant abnormalities the gastrointestinal tract may be missed. Repeat CT scan with full oral and IV contrast preparation recommended for more complete evaluation, as clinically indicated Right colonic diverticulosis Pulmonary bibasal subsegmental atelectasis Degenerative spondylosis Microbiology Date/Time Source Procedure Growth Status 09/04/16 05:30 Blood Blood Culture - Preliminary NO GROWTH AFTER 4 DAYS Resulted 09/03/16 17:30 Urine,Clean Catch Urine Culture - Final NO GROWTH AFTER 48 HOURS Complete Labs Test 09/07/16 04:50 White Blood Count 4.1 K/UL (4.8-10.8) Red Blood Count 3.93 M/UL (4.70-6.10) Hemoglobin 11.7 G/DL (14.2-18.0) Hematocrit 33.6 % (42.0-52.0) Mean Corpuscular Volume 86 FL (80-99) Mean Corpuscular Hemoglobin 29.7 PG (27.0-31.0) Mean Corpuscular Hemoglobin Concent 34.7 G/DL (32.0-36.0) Red Cell Distribution Width 12.0 % (11.6-14.8) Platelet Count 199 K/UL (150-450) Mean Platelet Volume 6.0 FL (6.5-10.1) Neutrophils (%) (Auto) 58.1 % (45.0-75.0) Lymphocytes (%) (Auto) 14.1 % (20.0-45.0) Monocytes (%) (Auto) 12.2 % (1.0-10.0) Eosinophils (%) (Auto) 14.2 % (0.0-3.0) Basophils (%) (Auto) 1.3 % (0.0-2.0) Sodium Level 140 mEQ/L (135-145) Potassium Level 3.6 mEQ/L (3.4-4.9) Chloride Level 106 mEQ/L (98-107) Carbon Dioxide Level 24 mEQ/L (20-30) Anion Gap 10 (5-15) Blood Urea Nitrogen 7 mg/dL (7-23) Creatinine 0.6 mg/dL (0.7-1.2) Estimat Glomerular Filtration Rate > 60 mL/min (>60) Glucose Level 97 mg/dL (74-106) Calcium Level 8.3 mg/dL (8.6-10.2) Current Medications Medications (Trade) Dose Ordered Sig/Alec Route PRN Reason Start Time Stop Time Status Last Admin Dose Admin Acetaminophen 650 mg 650 mg Q4H PRN ORAL Mild Pain/Temp > 100.5 09/03/16 05:00 10/03/16 04:59 09/04/16 19:28 Chlorhexidine Gluconate (Martha-Hex 2%) 1 applic DAILY TOPIC 09/09/16 10:00 10/09/16 09:59 Heparin Sodium/ Sodium Chloride (Heparin 2000 units/Ns 1000ml premix) 2,000 unit ONCE PRN INJ PICC PLACEMENT 09/07/16 11:45 09/08/16 23:59 Lidocaine HCl (Xylocaine 1% 30ml) 30 ml ONCE PRN INJ FOR PICC PLACEMENT 09/07/16 11:45 09/08/16 23:59 Meropenem/Sodium Chloride (Merrem/Sodium Chloride) 110 ml @ 220 mls/hr Q8HR IVPB 09/06/16 15:00 09/11/16 14:59 09/08/16 14:08 Ondansetron HCl (Zofran) 4 mg Q6H PRN IVP Nausea & Vomiting 09/03/16 06:00 10/03/16 05:59 Sodium Chloride 1,000 ml @ 150 mls/hr Q6H40M IV 09/03/16 10:00 10/03/16 09:59 09/08/16 14:07 JUSTYN GRANGER Sep 08, 2016 14:34
[2016-09-08 15:46] VITALS: BP 122/75
[2016-09-08] MEDS ORDERED: Tubing IV Secondary IV ONE (16:14)
--- NOTE | 2016-09-08 18:28 | Discharge Summary ---
Discharge Summary Hospital Course Date of Admission Sep 03, 2016 at 00:15 Date of Discharge Sep 08, 2016 at 16:15 Admitting Diagnosis SEPSIS Reason for Hospitalization: sepsis JR Pitts is a 56 year old male who was admitted on Sep 03, 2016 at 00:15 for Sepsis Consultations ID Urology Oncology Procedures CT guided lymph node biopsy Hospital Course 56 y/o man who presented to the ER with sepsis following prostate biopsy the day before, seen by ID and urology and was placed on broad spectrum IV abx immediately, symptoms improved very quickly, blood cx grew esbl e.coli. CT A/P showed retroperitoneal lymphadenopathy, s/p CT guided biopsy by IR, pathology results pending. Pt was hemodynamically stable and dced home on IV abx per ID via picc line. He will f/u with his PCP in 1 week to go over path results. Discharge Medications Continued Medications: Ertapenem Sodium* (INVanz*) 1 Gm Vial.port 1 GM IVPB Q24H for 14 Days, VIAL Discharge Condition Upon Discharge: stable Discharge Disposition Patient was discharged to Home with Home Health(06) Discharge Diagnoses: (1) Sepsis (2) ESBL (extended spectrum beta-lactamase) producing bacteria infection (3) Bacteremia due to Escherichia coli (4) Lymphadenopathy, abdominal (5) Acute prostatitis JAYME CHRISTY Sep 08, 2016 18:28
--- NOTE | 2016-09-09 09:27 | General Progress Note ---
Assessment/Plan Assessment/Plan 1. Retroperitoneal diffuse lymphadenopathy will be sent for biopsy. I have discussed extensively with the nurse even though the patient did in fact have a prostate biopsy, he still requires biopsy and the lymphadenopathy noted in the retroperitoneum. ---> ct guided biopsy has been done, path report is pending 2. Aortic lymphadenopathy. In addition, send for tumor markers. ---> only psa is elevated, the others are wnl 3. Splenomegaly likely related to underlying malignant process and gross infection. Continue to closely monitor. 4. Leukopenia. The patient likely has infection. --> improving 5. Coagulopathy secondary to malignancy. 6. Hyperkalemia. 7. Prostate specific antigen is 42 concerning for prostate cancer. 8. Elevated CA-99. 9. Lactic acidosis and septic shock, which improved. 10. Gram-negative bacteremia. 11. Follow up on biopsy report. 12. Discussed with staff. Subjective Date patient seen: Sep 08, 2016 Constitutional: Reports: no symptoms HEENT: Reports: no symptoms Cardiovascular: Reports: no symptoms Respiratory: Reports: no symptoms Gastrointestinal/Abdominal: Reports: no symptoms Genitourinary: Reports: no symptoms Neurologic/Psychiatric: Reports: no symptoms Endocrine: Reports: no symptoms Hematologic/Lymphatic: Reports: anemia Allergies: Coded Allergies: No Known Allergies (Unverified , 09/02/16) Subjective s/p ct guided biopsy, results are pending. pt dc today Objective Last 24 Hour Vital Signs Date Time Temp Pulse Resp B/P Pulse Ox O2 Delivery O2 Flow Rate FiO2 09/08/16 15:46 98.7 86 20 122/75 97 Room Air Intake and Output 09/08/16 09/09/16 19:00 07:00 Intake Total 1490 ml Balance 1490 ml Intake Oral 480 ml IV Total 1010 ml Height (Feet): 5 Height (Inches): 7.00 Weight (Pounds): 185 General Appearance: no apparent distress EENT: PERRL/EOMI Cardiovascular: normal rate Respiratory/Chest: chest wall non-tender Abdomen: normal bowel sounds Extremities: normal range of motion Edema: no edema noted Pedal (L), no edema noted Pedal (R) Neurologic: veneer taper II-XII grossly normal Skin: warm/dry Isaac Dietz Sep 09, 2016 09:27
[2016-09-09] MEDS ORDERED: Dyna-Hex 2% Top Sol 8oz TOPIC SCH (10:00)
== END 2016-09-08 16:15 | disposition home health service (06) | DRG 872 ==
LOC: EMR 20:53 → 4E 09-03 00:15 → EDBEDREQ 09-03 00:45
PROC: 02HV33Z Insertion of Infusion Device into Superior Vena Cava, Percutaneous Approach (ICD-10-PCS; principal; 2016-09-08)
PROC: 0WBH3ZX Excision of Retroperitoneum, Percutaneous Approach, Diagnostic (ICD-10-PCS; principal; 2016-09-08)
DX: A41.9 Sepsis, unspecified organism (principal); D68.8 Other specified coagulation defects; N41.0 Acute prostatitis; A41.51 Sepsis due to Escherichia coli [E. coli]; Z16.12 Extended spectrum beta lactamase (ESBL) resistance; R59.0 Localized enlarged lymph nodes; D64.9 Anemia, unspecified; E87.5 Hyperkalemia; R97.20 Elevated prostate specific antigen [PSA]
CPT/HCPCS: 36415; 36569; 71010; 74177; 76700; 76937; 77012; 80048; 80053; 81003; 82248; 82378; 82550; 82553; 83605; 83615; 84153; 84484; 84550; 85007; 85025; 85044; 85610; 85730; 86300; 86301; 87040; 87086; 87181; 93005

== ENCOUNTER 2016-09-25 09:43 | Emergency (ER) | payer OTHER ==
[~2016-09-25] VITALS: Ht 172.7 cm; Wt 81.6 kg
[~2016-09-25 09:43] MED LIST: CIPROFLOXACIN750 MG ORAL; INVANZ1 GM IVPB; UNOBMED
[2016-09-25 09:47] VITALS: BP 129/82
[2016-09-25 11:19] VITALS: BP 129/82
--- NOTE | 2016-09-26 15:22 | Emergency Room Report ---
History of Present Illness General Chief Complaint: General Complaint Source: Patient Present Illness HPI 56-year-old male presents ED for evaluation. Patient states he is here to have his PICC line removed from his left arm. States he was admitted here in August for IV antibiotics. Patient states he was discharged with PICC line and IV anabiotic supply. Patient states he completed his course of antibiotics as instructed by physicians here. Patient is currently following up with his PMD. PMD is requesting PICC line to be removed. States that she does not believe patient requires PICC line at this time and can take medications by mouth. Patient states he feels fine. Denies any fevers or chills. Denies any abdominal pain. No other aggravating or relieving factors. Denies any other associated symptoms Allergies: Coded Allergies: No Known Allergies (Unverified , 09/02/16) Patient History Past Medical History: none Past Surgical History: none Pertinent Family History: none Social History: Denies: alcohol use, drug use, smoking Immunizations: UTD Reviewed Nursing Documentation: PMH: Agreed, PSxH: Agreed Nursing Documentation-PMH Past Medical History: No History, Except For Review of Systems All Other Systems: negative except mentioned in HPI Physical Exam Vital Signs Date Time Temp Pulse Resp B/P Pulse Ox O2 Delivery O2 Flow Rate FiO2 09/25/16 09:47 98.2 98 18 129/82 99 Room Air Sp02 EP Interpretation: reviewed, normal General Appearance: no apparent distress, alert, GCS 15, non-toxic Head: normocephalic, atraumatic Eyes: bilateral eye PERRL, bilateral eye normal inspection ENT: hearing grossly normal, normal pharynx, no angioedema, normal voice Neck: full range of motion, supple/symm/no masses Respiratory: chest non-tender, lungs clear, normal breath sounds, speaking full sentences Cardiovascular #1: regular rate, rhythm, no edema Cardiovascular #2: 2+ carotid (R), 2+ carotid (L), 2+ radial (R), 2+ radial (L) , 2+ dorsalis pedis (R), 2+ dorsalis pedis (L) Gastrointestinal: normal bowel sounds, non tender, soft, non-distended, no guarding, no rebound Rectal: deferred Genitourinary: normal inspection, no CVA tenderness Musculoskeletal: back normal, gait/station normal, normal range of motion, non- tender Neurologic: alert, oriented x3, responsive, motor strength/tone normal, sensory intact, speech normal Psychiatric: judgement/insight normal, memory normal, mood/affect normal, no suicidal/homicidal ideation Reflexes: 3+ bicep (R), 3+ bicep (L), 3+ tricep (R), 3+ tricep (L), 3+ knee (R) , 3+ knee (L) Skin: normal color, no rash, warm/dry, well hydrated, other - PICC Line in LUE. nonerythematous. functioning. Lymphatic: no adenopathy Medical Decision Making Diagnostic Impression: Primary Impression: PIC line (peripherally inserted central catheter) removal ER Course 56-year-old M presents ED for PICC line removal Patient placed on stretcher. After initial history and physical I reviewed EMR last visit. Patient was treated for prostatitis. Patient has CT which showed significant adenopathy. Patient was admitted her IV antibiotics Patient was discharge with PICC line and to receive antibiotic I discussed case with PMD. She does not believe patient requires PICC line at this time. Will followup with contracted infectious disease specialist as per his insurance. Given that patient appears well improved with no fevers or pain we've remove the PICC line Diagnoses-PICC line removal Stable and discharged to home. Followup with PMD. Return to ED if symptoms recur or worsen Last Vital Signs Date Time Temp Pulse Resp B/P Pulse Ox O2 Delivery O2 Flow Rate FiO2 09/25/16 11:19 98.2 18 129/82 99 Room Air 09/25/16 09:47 98 Status: improved Disposition: HOME, SELF-CARE Condition: Stable Referrals: AMPARO SPARROW,REFERRING (PCP) Patient Instructions: PICC Removal, Care After PHYLLIS GAMBINO M.D. Sep 26, 2016 15:22
== END 2016-09-25 11:45 | disposition home or self-care (01) ==
LOC: EMR 11:00
DX: Z45.2 Encounter for adjustment and management of vascular access device (principal)

== ENCOUNTER 2019-07-30 19:48 | Emergency (ER) | payer MEDICAID, OTHER ==
[~2019-07-30] VITALS: Ht 180.3 cm; Wt 54.4 kg
--- NOTE | 2019-07-30 20:02 | Emergency Room Report ---
History of Present Illness General Chief Complaint: Altered Mental Status Source: EMS Present Illness HPI Patient presents with complaints of confusion History of present illness is significantly limited Patient cannot provide history paramedics report that the patient has history of Hodgkin's lymphoma Has had recent bone marrow transfusion The change in mental status has been over 48 hours There was no reports of vomiting or diarrhea Patient appears to have a PICC line in the left upper arm and a Port-A-Cath in the right upper chest Patient was here in 2017 with the following assessment by heme oncology: COPY/PASTE 1. Retroperitoneal diffuse lymphadenopathy will be sent for biopsy. I have discussed extensively with the nurse even though the patient did in fact have a prostate biopsy, he still requires biopsy and the lymphadenopathy noted in the retroperitoneum. ---> ct guided biopsy has been done, path report is pending 2. Aortic lymphadenopathy. In addition, send for tumor markers. ---> only psa is elevated, the others are wnl 3. Splenomegaly likely related to underlying malignant process and gross infection. Continue to closely monitor. 4. Leukopenia. The patient likely has infection. --> improving 5. Coagulopathy secondary to malignancy. 6. Hyperkalemia. 7. Prostate specific antigen is 42 concerning for prostate cancer. 8. Elevated CA-99. 9. Lactic acidosis and septic shock, which improved. 10. Gram-negative bacteremia. 11. Follow up on biopsy report. 12. Discussed with staff. Allergies: Coded Allergies: No Known Allergies (Unverified , 09/02/16) COVID-19 Screening Contact w/high risk pt: No Recent Travel to affected area: No Experienced COVID-19 symptoms?: No COVID-19 Testing performed [employer] ASSOCIATE: No Patient History Limited by: medical condition Past Medical History: see triage record Reviewed Nursing Documentation: PMH: Agreed; PSxH: Agreed Review of Systems All Other Systems: limited - Other than the ones mentioned in the history of present illness all others are reviewed however they do stay limited due to the patient's mental status Physical Exam Vital Signs Date Time Temp Pulse Resp B/P (MAP) Pulse Ox O2 Delivery O2 Flow Rate FiO2 07/30/19 19:42 97.5 102 18 130/79 (96) 98 Room Air Sp02 EP Interpretation: reviewed, normal General Appearance: other - Appears confused mildly jaundice Head: normocephalic, atraumatic Eyes: bilateral eye other - Bilaterally sluggish ENT: EOM grossly intact, dry mucus membranes Neck: supple Respiratory: lungs clear, no respiratory distress, no retraction Cardiovascular #1: regular rate, rhythm Gastrointestinal: non tender, soft Musculoskeletal: other - Patient does not follow commands however moves both upper extremity without focal deficit Neurologic: other - Responsive awake makes eye contact however does not follow simple commands speech is limited Skin: other - Jaundice, pale Lymphatic: no adenopathy Procedures Critical Care Time Critical Care Time 50 minutes for critical findings concerning for neurological neurovascularly compromised concern for acute deterioration multiple repeat neurological exams not including any procedural time Medical Decision Making Diagnostic Impression: Primary Impression: Metastatic disease Additional Impression: Hodgkin lymphoma ER Course Given the patient's history multiple differentials including but not limited to neurological, neurosurgical infectious,, metabolic, metastatic disease entertained Patient CT imaging showing concerning findings with multiple differentials including metastatic disease versus possible mass Initially contact was made with Gavin Edwards with this finding However I was not forwarded to a neurosurgeon or neurology Contact was made with our inpatient hospitalist And patient's heme oncologist who saw the patient 2 years ago they will follow further with MRI and further testing Should the patient require higher level of care transfer at that point We will proceed with this At this time the patient's airway remains appropriate Patient is hemodynamically intact And admitted for further care Labs Test 07/30/19 20:03 07/30/19 20:40 White Blood Count 3.7 K/UL (4.8-10.8) Red Blood Count 3.17 M/UL (4.70-6.10) Hemoglobin 9.8 G/DL (14.2-18.0) Hematocrit 30.6 % (42.0-52.0) Mean Corpuscular Volume 97 FL (80-99) Mean Corpuscular Hemoglobin 30.9 PG (27.0-31.0) Mean Corpuscular Hemoglobin Concent 31.9 G/DL (32.0-36.0) Red Cell Distribution Width 17.1 % (11.6-14.8) Platelet Count 20 K/UL (150-450) Mean Platelet Volume 8.1 FL (6.5-10.1) Neutrophils (%) (Auto) 70.3 % (45.0-75.0) Lymphocytes (%) (Auto) 17.2 % (20.0-45.0) Monocytes (%) (Auto) 5.7 % (1.0-10.0) Eosinophils (%) (Auto) 6.1 % (0.0-3.0) Basophils (%) (Auto) 0.7 % (0.0-2.0) Urine Color Pale yellow Urine Appearance Clear Urine pH 7 (4.5-8.0) Urine Specific [place] 1.010 (1.005-1.035) Urine Protein Negative (NEGATIVE) Urine Glucose (UA) Negative (NEGATIVE) Urine Ketones Negative (NEGATIVE) Urine Blood Negative (NEGATIVE) Urine Nitrite Negative (NEGATIVE) Urine Bilirubin Negative (NEGATIVE) Urine Urobilinogen Normal MG/DL (0.0-1.0) Urine Leukocyte Esterase Negative (NEGATIVE) Sodium Level 141 MMOL/L (136-145) Potassium Level 3.9 MMOL/L (3.5-5.1) Chloride Level 104 MMOL/L (98-107) Carbon Dioxide Level 29 MMOL/L (21-32) Anion Gap 8 mmol/L (5-15) Blood Urea Nitrogen 13 mg/dL (7-18) Creatinine 0.8 MG/DL (0.55-1.30) Estimat Glomerular Filtration Rate > 60 mL/min (>60) Glucose Level 113 MG/DL (74-106) Lactic Acid Level 0.80 mmol/L (0.4-2.0) Calcium Level 8.8 MG/DL (8.5-10.1) Total Bilirubin 0.5 MG/DL (0.2-1.0) Aspartate Amino Transf (AST/SGOT) 22 U/L (15-37) Alanine Aminotransferase (ALT/SGPT) 14 U/L (12-78) Alkaline Phosphatase 136 U/L (46-116) Total Creatine Kinase 23 U/L (26-308) Creatine Kinase MB < 0.5 NG/ML (0.0-3.6) Creatine Kinase MB Relative Index 2.1 Troponin I 0.000 ng/mL (0.000-0.056) Pro-B-Type Natriuretic Peptide 79 pg/mL (0-125) Total Protein 6.2 G/DL (6.4-8.2) Albumin 3.3 G/DL (3.4-5.0) Globulin 2.9 g/dL Albumin/Globulin Ratio 1.1 (1.0-2.7) Lipase 118 U/L (73-393) Ammonia < 10 umol/L (11-32) Rhythm Strip Diag. Results EP Interpretation: yes Rate: 77 Rhythm: NSR, no PVC's, no ectopy Chest X-Ray Diagnostic Results Chest X-Ray Diagnostic Results : Chest X-Ray Ordered: Yes # of Views/Limited/Complete: 1 View Indication: Chest Pain EP Interpretation: Yes Interpretation: no consolidation, no effusion, no pneumothorax Impression: No acute disease Electronically Signed by: Melissa Morales DO CT/MRI/US Diagnostic Results CT/MRI/US Diagnostic Results : Impression CT headIMPRESSION: Diffuse hypodensity of the bilateral cerebral hemispheres as detailed above. Possible mass within the left frontal lobe with resultant mass-effect on the lateral ventricle. Differential includes primary malignancy (glioblastoma), metastasis, versus infection. Given extent of hypodensity, ischemia is considered less likely. Recommend MRI with contrast for further evaluation. Last Vital Signs Date Time Temp Pulse Resp B/P (MAP) Pulse Ox O2 Delivery O2 Flow Rate FiO2 07/30/19 19:42 97.5 102 18 130/79 (96) 98 Room Air Status: improved Disposition: ADMITTED INPATIENT Condition: Serious Melissa Morales DO Jul 30, 2019 20:02
[2019-07-30 20:29] VITALS: BP 130/79
[2019-07-30 20:33] LABS: HEMATOCRIT 30.6 % (42.0-52.0); HEMOGLOBIN 9.8 G/DL (14.2-18.0); MEAN CORPUSCULAR VOLUME 97 FL (80-99); PLATELET COUNT 20 K/UL (150-450); RED BLOOD COUNT 3.17 M/UL (4.70-6.10); RED CELL DISTRIBUTION WIDTH 17.1 % (11.6-14.8); WHITE BLOOD COUNT 3.7 K/UL (4.8-10.8)
[2019-07-30 20:36] LABS: APPEARANCE,URINE CLEAR; BILIRUBIN, URINE NEGATIVE (NEGATIVE); COLOR,URINE PALE YELLOW; GLUCOSE, URINE (UA) NEGATIVE (NEGATIVE); KETONES,URINE NEGATIVE (NEGATIVE); LEUKOCYTE ESTERASE ,URINE NEGATIVE (NEGATIVE); NITRITE,URINE NEGATIVE (NEGATIVE); PH,URINE 7 (4.5-8.0); PROTEIN,URINE NEGATIVE (NEGATIVE); UROBILINOGEN,URINE NORMAL MG/DL (0.0-1.0)
[2019-07-30 20:37] LABS: BASOPHILS % (AUTO) 0.7 % (0.0-2.0); EOSINOPHILS % (AUTO) 6.1 % (0.0-3.0); LYMPHOCYTES % (AUTO) 17.2 % (20.0-45.0); MONOCYTES % (AUTO) 5.7 % (1.0-10.0); NEUTROPHILS % (AUTO) 70.3 % (45.0-75.0)
[2019-07-30 20:51] LABS: ANION GAP 8 mmol/L (5-15); BLOOD UREA NITROGEN 13 mg/dL (7-18); CALCIUM 8.8 MG/DL (8.5-10.1); CARBON DIOXIDE 29 MMOL/L (21-32); CHLORIDE 104 MMOL/L (98-107); CREATININE 0.8 MG/DL (0.55-1.30); POTASSIUM 3.9 MMOL/L (3.5-5.1); SODIUM 141 MMOL/L (136-145)
--- NOTE | 2019-07-30 20:52 | Diagnostic Imaging Report ---
EXAM: CT Head Without Intravenous Contrast CLINICAL HISTORY: AMS TECHNIQUE: Axial computed tomography images of the head/brain without intravenous contrast. CTDI is 53.4 mGy and DLP is 1045 mGy-cm. One or more of the following dose reduction techniques were used: automated exposure control, adjustment of the mA and/or kV according to patient size, use of iterative reconstruction technique. COMPARISON: None available FINDINGS: Brain: Hypodensity is demonstrated within the bilateral cerebral hemispheres. No significant involves the right frontal region where hypodensity involves the white matter extending into the pop-white junction and possibly involving the cortex. Additional hypodensity is noted within the left frontal lobe, bilateral basal ganglia as well as the left thalamic region. There is a subtle density within the region of the left internal capsule region. There is mild mass-effect on the adjacent lateral ventricle. There is no midline shift. There is no herniation. No hemorrhage. Ventricles: Mild mass-effect on the lateral ventricle as above. No ventriculomegaly. Bones/joints: Unremarkable. No acute fracture. Soft tissues: Unremarkable. Sinuses: Unremarkable as visualized. No acute sinusitis. Mastoid air cells: Unremarkable as visualized. No mastoid effusion. IMPRESSION: Diffuse hypodensity of the bilateral cerebral hemispheres as detailed above. Possible mass within the left frontal lobe with resultant mass-effect on the lateral ventricle. Differential includes primary malignancy (glioblastoma), metastasis, versus infection. Given extent of hypodensity, ischemia is considered less likely. Recommend MRI with contrast for further evaluation.
[2019-07-30 21:02] LABS: ALANINE AMINOTRANSFERASE 14 U/L (12-78); ALBUMIN 3.3 G/DL (3.4-5.0); ALBUMIN/GLOBULIN RATIO 1.1 (1.0-2.7); ALKALINE PHOSPHATASE 136 U/L (46-116); ASPARTATE AMINO TRANSFERASE 22 U/L (15-37); BILIRUBIN,TOTAL 0.5 MG/DL (0.2-1.0); CKMB < 0.5 NG/ML (0.0-3.6); CREATINE KINASE 23 U/L (26-308)
--- NOTE | 2019-07-30 21:11 | Diagnostic Imaging Report ---
EXAM: XR Chest, 1 View CLINICAL HISTORY: CP TECHNIQUE: Frontal view of the chest. COMPARISON: None available. FINDINGS: Lungs: Unremarkable. No consolidation. Pleural space: Unremarkable. No pneumothorax. Heart: Unremarkable. No cardiomegaly. Mediastinum: Unremarkable. Bones/joints: Unremarkable. Tubes, lines and devices: Right sided chest port and left upper extremity PICC, with tips terminating near the cavoatrial junction. IMPRESSION: 1. No acute findings in the chest. 2. Left upper extremity PICC and right-sided chest port, which appear appropriately positioned.
[2019-07-30] MEDS ORDERED: Acetaminophen 500mg (ES) tab ORAL PRN (22:00)
[2019-07-30] MEDS ORDERED: Milk of Magnesia 30ml Ud ORAL PRN (22:00)
[2019-07-30] MEDS ORDERED: Gadavist 7.5mMol/7.5ml vial IV PRN (22:00)
[2019-07-30] MEDS ORDERED: LORazepam Inj 2mg/ml 1ml IV ONE (22:30)
[2019-07-30 23:50] VITALS: BP 132/81
--- NOTE | 2019-07-31 00:36 | Diagnostic Imaging Report ---
EXAM: MR Head Without and With Intravenous Contrast CLINICAL HISTORY: AMS TECHNIQUE: Magnetic resonance images of the head/brain without and with intravenous contrast in multiple planes. COMPARISON: CT Head 07/30/19 FINDINGS: Limitations: The study is limited by motion. Brain: There are multiple enhancing lesions seen within the brain involving right cerebral peduncle (12-mm), left internal capsule/cerebral peduncle (31.4-mm), left lentiform nucleus (9.2-mm), right jack radiata (8.2-mm), right frontal lobe (21-mm), right parietal lobe (15.7-mm), right superior frontal gyrus (7.1-mm), left posterior temporal lobe (4.5- mm), left parietal lobe (5.5-mm) and left occipital lobe (3.2-mm). Subtle restricted diffusion seen in the left cerebral peduncle lesion, right frontal and right parietal lesions may reflect hypercellularity. 3. 9 mm of right to left midline shift. Edema seen surrounding these lesions most significant in the right frontal lobe and bilateral cerebral peduncles, thalami and artemio and superior cerebellar peduncle. Findings favor metastasis. No hemorrhage however please note that susceptibility weighted imaging was not performed. Ventricles: Similar appearance of mass effect on the left lateral ventricle. No ventriculomegaly. Bones/joints: Unremarkable. Sinuses: Mucosal thickening of the maxillary sinuses and mild ethmoid sinus disease. No acute sinusitis. Mastoid air cells: Left mastoid effusion. Orbits: Unremarkable as visualized. IMPRESSION: There are multiple enhancing lesions seen within the brain involving right cerebral peduncle (12-mm), left internal capsule/cerebral peduncle (31.4-mm), left lentiform nucleus (9.2-mm), right jack radiata (8.2-mm), right frontal lobe (21-mm), right parietal lobe (15.7-mm), right superior frontal gyrus (7.1-mm), left posterior temporal lobe (4.5-mm), left parietal lobe (5.5-mm) and left occipital lobe (3.2-mm). Subtle restricted diffusion seen in the left cerebral peduncle lesion, right frontal and right parietal lesions may reflect hypercellularity. 3.9 mm of right to left midline shift. Edema seen surrounding these lesions most significant in the right frontal lobe and bilateral cerebral peduncles, thalami and artemio and superior cerebellar peduncle. Findings favor metastasis. <MYCVCSECTION> Communications: 07/31/19 00:39 Call Doctor Regarding Brain or Cord Tumor with Significant Mass Effect, called Jacobo GUERRIER on 07/30 00:39 (-07:00)
[2019-07-31 02:42] VITALS: BP 127/85
[2019-07-31 04:46] VITALS: BP 131/88
[2019-07-31 07:05] VITALS: BP 133/94
[2019-07-31 09:00] VITALS: BP 128/88
[2019-07-31] MEDS ORDERED: Heparin 5000 units/ml inj SUBQ SCH (09:00)
[2019-07-31 11:05] VITALS: BP 124/87
--- NOTE | 2019-07-31 23:00 | History and Physical Report ---
DATE OF ADMISSION: 07/30/2019 CHIEF COMPLAINT: Altered mental status. HISTORY OF PRESENT ILLNESS: The patient is a 59-year-old male. He has a history of lymphoma for the last 4 years. He presented from home with complaints of confusion for 1 to 2 days. On evaluation in the emergency room, the patient was poorly responsive. According to the family members, the patient has a history of lymphoma for the last 4 years. He has been compliant with his followup and treatment. In the ER, the laboratories were relatively unremarkable. His vital signs were stable. MRI of the brain showed multiple enhancing lesions in the brain with some surrounding edema. PAST MEDICAL HISTORY: As above. PAST SURGICAL HISTORY: Unknown. CURRENT MEDICATIONS: Unknown. FAMILY HISTORY: None. SOCIAL HISTORY: There is no known history of tobacco, ethanol, or drugs. REVIEW OF SYSTEMS: From the patient is not obtainable as he is confused. PHYSICAL EXAMINATION: VITAL SIGNS: Temperature 98.5, pulse 92, respirations 16, blood pressure 133/94. GENERAL: The patient is a thin male. He opens his eyes, but is nonverbal. HEENT: Pupils are equal, round, and reactive to light. Oropharynx is clear. NECK: Supple. HEART: Regular rate and rhythm. LUNGS: Clear. ABDOMEN: Soft, nontender, and nondistended. EXTREMITIES: Without clubbing or cyanosis. NEUROLOGIC: The patient moves all four extremities, but does not follow commands. LABORATORY DATA: Sodium 141, potassium 3.9. Ammonia level is less than 10. CK 23. Urine was clear. White count 3, hemoglobin 10, hematocrit 30, and platelet count of 20,000. ASSESSMENT: This is a 59-year-old male with a history of lymphoma, admitted with complaints of altered mental status. The patient was noted to have multiple enhancing lesions in the brain. It is unclear whether or not these are his lymphoma or a secondary tumor. PLAN: Hematology/Oncology evaluation. Consider IV Decadron. Monitor platelet count. We will attempt to contact the patient's fsr/oncologist . Eduardo Alston M.D. DR: MARIA DEL CARMEN JOB#: [id number] CC:
== END 2019-07-31 11:10 | disposition short-term general hospital (02) ==
LOC: EDBD 19:48 → EMR 20:22
DX: C79.9 Secondary malignant neoplasm of unspecified site (principal); C81.90 Hodgkin lymphoma, unspecified, unspecified site; R17 Unspecified jaundice; R07.9 Chest pain, unspecified
CPT/HCPCS: 36415; 70450; 70553; 71045; 80053; 81003; 82140; 82550; 82553; 83605; 83690; 83880; 84484; 85025; 87040; 93005; 96361; 96374; A9585; J7030; Z7502; 99285